=== PATIENT | female | born 1985 | race Caucasian/White ===

== ENCOUNTER 2022-11-19 17:07 | Emergency (ER) | payer SELFPAY ==
[2022-11-19 17:10] VITALS: BP 123/94; PULSE 102; RESP 18; TEMP 36.9; O2SAT 97; BMI 39.8
[2022-11-19 17:17] VITALS: BP 123/94; PULSE 60; O2SAT 96
[2022-11-19 17:21] LABS: Microscopic, Urine URINE MICROSCOPIC (MICROSCOPIC)
--- NOTE | 2022-11-19 17:21 | PC.NURSE ---
UA SENT TO LAB
[2022-11-19 17:24] LABS: Appearance,Urine CLEAR (Clear); Blood, Urine Negative (Negative); Color,Urine YELLOW (Yellow); Glucose,Urine (UA) Negative (Negative); Ketones,Urine Negative (Negative); Leukocyte Esterase,Urine TRACE (Negative); Nitrate,Urine Negative (Negative); Protein,Urine TRACE (Negative); Specific Gravity, Urine >= 1.030 (1.005-1.030)
[2022-11-19 17:33] LABS: Bilirubin,Urine 1+ (Negative)
--- NOTE | 2022-11-19 17:35 | PC.NURSE ---
LIGHT TURNED OFF PT RECEIVED WARM BLANKET STATED HER HEAD WAS STARTING TO POUND NOTIFIED RNGLORIA
[2022-11-19 17:45] LABS: Squamous Epithelial Cell,Urine Occasional #/hpf (0-5); WBC,Urine Occasional #/hpf (0-3)
--- NOTE | 2022-11-19 18:17 | CT_ITS ---
PROCEDURE INFORMATION: Exam: CT Abdomen And Pelvis With Contrast Exam date and time: 11/19/2022 6:47 PM Age: 37 years old Clinical indication: Abdominal pain; Additional info: Ruq/rlq abd pain TECHNIQUE: Imaging protocol: Computed tomography of the abdomen and pelvis with contrast. Radiation optimization: All CT scans at this facility use at least one of these dose optimization techniques: automated exposure control; mA and/or kV adjustment per patient size (includes targeted exams where dose is matched to clinical indication); or iterative reconstruction. Contrast material: ISOVUE; Contrast volume: 75 ml; Contrast route: IV; REPORTING DATA: Count of CT and Cardiac NM exams in prior 12 months: This patient has received 0 known CTs and 0 known cardiac nuclear medicine studies in the 12 months prior to the current study. COMPARISON: No relevant prior studies available. FINDINGS: Liver: Normal. No mass. Gallbladder and bile ducts: Cholecystectomy. Pancreas: Normal. No ductal dilation. Spleen: Normal. No splenomegaly. Adrenal glands: Normal. No mass. Kidneys and ureters: Normal. No hydronephrosis. Stomach and bowel: Constipation. No colitis or small bowel obstruction. Appendix: No evidence of appendicitis. Intraperitoneal space: Unremarkable. No free air. No significant fluid collection. Vasculature: Unremarkable. No abdominal aortic aneurysm. Lymph nodes: Unremarkable. No enlarged lymph nodes. Urinary bladder: Unremarkable as visualized. Reproductive: Unremarkable as visualized. Bones/joints: Unremarkable. No acute fracture. Soft tissues: Unremarkable. IMPRESSION: No acute findings.
--- NOTE | 2022-11-19 18:18 | HMH.EDGENADL ---
Discharge Plan Disposition Chief Complaint: Abdominal Pain Referrals Follow up/Referrals: Provider,Referral, [Primary Care Provider] - See instructions Activity Restrictions/Add. Instructions Additional Instructions/Restrictions: At this time is felt you are safe to be discharged home. If new or worsening symptoms please do not hesitate to return to the emergency department. Please follow-up with your family doctor within 1 week should symptoms persist. Clinical Impressions Clinical Impression: Abdominal pain Instructions Patient Instructions: DI for Acute Abdominal Pain Discharge ED Provider: Tolu Lopez General Adult HPI General Chief complaint: Abdominal Pain Stated complaint: abd pain Time Seen by Provider: 11/19/22 18:10 Mode of Arrival: Ambulatory Source of Information: Patient Limitations: No Limitations Description of Symptoms (Recalled from ER Triage Doc. by RN): Patient reports severe abdominal pain on an doff for 9 days however it became more intense approx 1 hour ago. Patient states she wants no narcotics at this time. History of Present Illness HPI narrative: Patient is a 37-year-old female with past medical history of previous polysubstance abuse, no current substance abuse, previous cholecystectomy, multiple mental health problems . Who presents emergency department for evaluation of right-sided abdominal pain. History is obtained by patient at bedside. She states that she has had right upper quadrant abdominal pain radiating around to her right flank for the last 9 days, worse with the last 3 days. Decreased p.o. intake, nonbloody nonbilious vomiting. Still having bowel movements. Patient is also recently quit smoking marijuana. No other acute complaints at this time. Related Data Allergies Allergy/AdvReac Type Severity Reaction Status Date / Time Penicillins Allergy Verified 11/19/22 17:36 sarika products Allergy Uncoded 11/19/22 17:36 [facility] Disclaimer: The information contained in this section may have been updated after the patient was seen, as this information can be updated by other users. Social History Smoking Status: Current every day smoker alcohol intake: former current occupational status: unemployed Travel in the last 8 weeks: None ROS Obtained: Yes Systems reviewed as appropriate & no additional complaints except as documented Physical Exam General General appearance: alert and in no apparent distress Head Head exam: atraumatic and normocephalic Eye Eye exam: Present PERRL, EOMI and mydriasis ENT ENT exam: Present mucous membranes moist Neck Neck exam: Present normal inspection Chest Chest inspection: Present normal inspection and symmetric chest wall rise Respiratory Respiratory exam: Present normal lung sounds bilaterally; Absent respiratory distress Cardiovascular Cardiovascular exam: Present regular rate and normal rhythm Abdominal Exam Abdominal exam: Present soft and tenderness (Right upper quadrant. Mild tenderness left upper quadrant. No tenderness bilateral lower quadrants); Absent rebound or rigidity Extremities Exam Extremities exam: Present normal inspection Neurological Exam Neurological exam: Present alert and oriented X3 Psychiatric Psychiatric exam: Present normal affect Skin Skin exam: Present warm and dry Medical Decision Making Akin Inquiry Pt receiving controlled substance: No Vital Signs: 11/19/22 17:10 11/19/22 17:17 Temperature 98.4 F Temperature Source Oral Pulse Rate 60 Pulse Rate [Radial] 102 H Respiratory Rate 18 Blood Pressure 123/94 H Blood Pressure [Right Arm] 123/94 H Blood Pressure Mean 104 Blood Pressure Mean [Right Arm] 103 Blood Pressure Source [Right Arm] Automatic Cuff Blood Pressure Position [Right Arm] Sitting 02 Sat by Pulse Oximetry 97 96 Oxygen Delivery Method Room Air Room Air Lab Data Lab Results 11/19/22 17:16: Urine Color Yellow, Urine Appearance Clear
[2022-11-19 18:24] LABS: Basophils % 0.6 % (0.1-2.0); Chloride 104 mmol/L (98-107); Eosinophils # 0.1 K/mm3 (0.0-0.4); Eosinophils % 0.8 % (0.1-12.0); Hemoglobin 10.9 g/dL (12.2-16.2); Lymphocytes # 2.5 K/mm3 (0.7-4.5); Lymphocytes % 34.9 % (10-50); Mean Corpuscular HGB Conc 31.1 g/dL (31.8-35.4); Mean Corpuscular Hemoglobin 21.3 pg (27.0-31.2); Mean Corpuscular Volume 68.5 fl (81-99); Mean Platelet Volume 7.7 fl (7.4-10.4); Monocytes # 0.4 K/mm3 (0.1-1.0); Monocytes % 5.6 % (1.7-9.3); Neutrophils # 4.2 K/mm3 (1.8-7.8); Neutrophils % 58.1 % (37.0-80.0); Platelet Count 281 K/mm3 (142-424); Potassium 3.4 mmoL/L (3.5-5.1); Red Blood Count 5.11 M/mm3 (4.20-5.40); Red Cell Distribution Width 17.6 % (11.5-17.5); Sodium 139 mmol/L (136-145); White Blood Count 7.3 K/mm3 (4.8-10.8)
[2022-11-19 18:27] LABS: Alanine Aminotransferase 31 U/L (12-78); Albumin Level 3.9 g/dl (3.5-5.0); Alkaline Phosphatase 78 U/L (38-126); Anion Gap 9.4 mEq/L (5-15); Aspartate Amino Transferase 28 U/L (14-36); Bilirubin,Total 0.5 mg/dl (0.2-1.3); Blood Urea Nitrogen 12 mg/dl (7-17); Calcium 8.9 mg/dl (8.4-10.2); Carbon Dioxide 29 mmol/L (22.0-30.0); Creatinine Clearance Estimated 181 mL/min (50-200); Estimated Glomerular Filt Rate 94 ml/min (>60); GFR (African American) 113 ML/MIN (>60); Globulin 3.8 g/dL (1.3-3.2); Glucose 101 mg/dl (74-100); Lipase 38 U/L (23-300); Total Protein,Serum 7.7 g/dl (6.3-8.2)
[2022-11-19 18:33] LABS: C-Reactive Protein 10.6 mg/L (0-4)
[2022-11-19 18:42] LABS: HCG Qualitative, Serum Negative (Negative)
--- NOTE | 2022-11-19 18:43 | PC.NURSE ---
PT IS AT CT
[2022-11-19 20:28] VITALS: BP 124/74; PULSE 58; RESP 18; TEMP 36.9; O2SAT 96
== END 2022-11-19 20:30 | disposition home or self-care (01) ==
PROVIDERS: Emergency Provider Emergency Medicine
DX: R10.11 Right upper quadrant pain (principal); F17.200 Nicotine dependence, unspecified, uncomplicated
CPT/HCPCS: 74177; 80053; 81001; 83690; 84703; 85025; 86140; 96361; 96374; 96375; 99285; J0131; J2405; Q9967

== ENCOUNTER 2023-09-02 14:55 | Emergency (ER) | payer MEDICAID, SELFPAY ==
[2023-09-02 14:56] VITALS: BP 131/76; PULSE 87; RESP 21; TEMP 37.1; O2SAT 83; BMI 40.3
--- NOTE | 2023-09-02 15:01 | ECG_ITS ---
APPROVED REPORT Exam: Resting ECG HR:77 bpm ECG Measurements Heart Rate 77 AXES ND 150 P 53 QRSd 105 QRS 64 QT 402 T 19 QTc 434 Conclusion SINUS RHYTHM Electronically signed by : DAMON WHEELER, 09/02/2023 19:42:01
--- NOTE | 2023-09-02 15:14 | XR_ITS ---
FINAL REPORT CLINICAL HISTORY: chest pressure soa, COPD FINDINGS: No acute pulmonary opacity is present. There is no evidence of effusion or pneumothorax. Mediastinum is unremarkable. Heart size is normal. IMPRESSION: No acute abnormality. Reviewed, Interpreted and Dictated by Payton Garvey MD Transcribed by Tia Campos Authenticated and [facility]
[2023-09-02 15:25] LABS: Basophils % 0.5 % (0.1-2.0); Chloride 108 mmol/L (98-107); Eosinophils # 0.1 K/mm3 (0.0-0.4); Eosinophils % 1.4 % (0.1-12.0); Hematocrit 29.3 % (37.0-47.0); Hemoglobin 9.3 g/dL (12.2-16.2); Lymphocytes # 2.3 K/mm3 (0.7-4.5); Lymphocytes % 42.3 % (10-50); Mean Corpuscular HGB Conc 31.6 g/dL (31.8-35.4); Mean Corpuscular Hemoglobin 22.2 pg (27.0-31.2); Mean Corpuscular Volume 70.1 fl (81-99); Mean Platelet Volume 7.9 fl (7.4-10.4); Monocytes # 0.3 K/mm3 (0.1-1.0); Monocytes % 5.9 % (1.7-9.3); Neutrophils # 2.7 K/mm3 (1.8-7.8); Neutrophils % 49.8 % (37.0-80.0); Platelet Count 300 K/mm3 (142-424); Potassium 3.7 mmoL/L (3.5-5.1); Red Blood Count 4.18 M/mm3 (4.20-5.40); Red Cell Distribution Width 18.5 % (11.5-17.5); Sodium 141 mmol/L (136-145); White Blood Count 5.5 K/mm3 (4.8-10.8)
[2023-09-02 15:27] LABS: Blood Urea Nitrogen 12 mg/dl (7-17); Creatinine Clearance Estimated 214 mL/min (50-200); Estimated Glomerular Filt Rate 112 ml/min (>60); GFR (African American) 135 ML/MIN (>60)
[2023-09-02 15:28] LABS: Alanine Aminotransferase 34 U/L (12-78); Albumin Level 3.5 g/dl (3.5-5.0); Alkaline Phosphatase 64 U/L (38-126); Anion Gap 8.7 mEq/L (5-15); Aspartate Amino Transferase 23 U/L (14-36); Bilirubin,Total 0.4 mg/dl (0.2-1.3); Calcium 8.8 mg/dl (8.4-10.2); Carbon Dioxide 28 mmol/L (22.0-30.0); Globulin 3.4 g/dL (1.3-3.2); Glucose 84 mg/dl (74-100); Total Protein,Serum 6.9 g/dl (6.3-8.2)
[2023-09-02 15:30] VITALS: BP 87/48; PULSE 74; O2SAT 97
--- NOTE | 2023-09-02 15:33 | HMH.EDCP ---
Discharge Plan Disposition Patient Disposition: Home, Self-Care Prescriptions Prescriptions: New prednisone 20 mg tablet 40 mg PO DAILY 5 Days Qty: 10 0RF ondansetron 4 mg tablet,disintegrating 4 mg PO Q6H PRN (Reason: nausea and vomiting) Qty: 10 0RF Referrals Follow up/Referrals: Provider,Referral, MD [Primary Care Provider] - See instructions Activity Restrictions/Add. Instructions Additional Instructions/Restrictions: Call your family doctor to establish care for this visit to the emergency department and schedule follow-up within 48 hours to ensure improvement. If you have any worsening of your condition or any other concerning signs or symptoms, return to the emergency department or your primary care doctor for further evaluation. Clinical Impressions Clinical Impression: Acute exacerbation of chronic obstructive pulmonary disease Discharge ED Provider: Teofilo Jacobo HPI General Chief Complaint: Chest Pain Stated Complaint: Chest Pain Time Seen by Provider: 09/02/23 15:04 Mode of Arrival: Family Vehicle Source of Information: Patient Limitations: No Limitations Description of Symptoms (Recalled from ER Triage Doc. by RN): Pt c/o midsternal chest pain that has been present since yesterday. States while she was driving this morning, I don't even rember driving home I just felt really out of sorts . States she has also had nausea with vomiting bile last 2 days and has an awful metallic taste in my mouth . She denies any fever, chills, body aches, or abd pain. She does reports a hx of drug use and take Methadone daily. History of Present Illness HPI narrative: Please note that above description of symptoms, in this electronic medical record under categorization of recalled from ER triage doctor by RN are reflective of an initial nursing assessment, however, is not reflective of my full history and physical exam that was personally taken and clarified. Consequentially, this preceding description of symptoms, which may include the patient's categorized chief complaint in the EMR, do not reflect my personal clinical impression, and the ultimate description of history of present illness and patient stated complaints should be deferred to this section of the note. Unless stated otherwise or congruent with this section of the note, additional signs, symptoms, or incongruence should be interpreted as inaccurate with my clinical impression. Related Data Previous Rx's Medication Instructions Recorded ondansetron 4 mg disintegrating 4 mg PO Q6H PRN nausea and 09/02/23 tablet vomiting #10 tabs prednisone 20 mg tablet 40 mg (2 x 20 mg) PO DAILY 5 days 09/02/23 #10 tabs Allergies Allergy/AdvReac Type Severity Reaction Status Date / Time lidocaine Allergy Unknown Verified 12/20/22 09:58 allergy reaction Penicillins Allergy Unknown Verified 12/20/22 09:58 allergy reaction [facility] Disclaimer: The information contained in this section may have been updated after the patient was seen, as this information can be updated by other users. Social History (Updated 11/19/22 @ 20:20 by Tolu Lopez MD) Smoking Status: Current every day smoker alcohol intake: former current occupational status: unemployed Travel in the last 8 weeks: None ROS Obtained: Yes All systems reviewed & no additional complaints except as documented Physical Exam General General appearance: alert Neck Neck exam: Present trachea midline Chest Chest inspection: Present normal inspection and symmetric chest wall rise Respiratory Respiratory exam: Present normal lung sounds bilaterally; Absent respiratory distress, wheezes, stridor, accessory muscle use or prolonged expiratory phase Cardiovascular Cardiovascular exam: Present regular rate and normal rhythm Extremities Exam Extremities exam: Absent edema Neurological Exam Neurological exam: Present alert, oriented X3 and CN II-XII intact Skin Skin exam: Present warm and dry; Absent cyanosis, diaphoresis or pallor HEART Score HEART Score HEART Score assessment performed?: Yes HEART Score: 0 Critical Care Critical Care Time Critical Care Time: No Medical Decision Making Medical Records Medical records reviewed: Yes I reviewed the patient's medical records. Akin Inquiry Pt receiving controlled substance: No Akin was queried for this patient: No Vital Signs Vital Signs: 09/02/23 14:56 09/02/23 15:30 Temperature 98.7 F Temperature Source Oral Pulse Rate 74 Pulse Rate [Right] 87 Respiratory Rate 21 Blood Pressure 87/48 L Blood Pressure [Right Arm] 131/76 Blood Pressure Mean [Right Arm] 94 Blood Pressure Source [Right Arm] Automatic Cuff 02 Sat by Pulse Oximetry 83 L 97 Oxygen Delivery Method Room Air Room Air Lab Data Labs: Lab Results 09/02/23 15:07: WBC 5.5, RBC 4.18 L, Hgb 9.3 L, Hct 29.3 L, MCV 70.1 L, MCH 22.2 L, MCHC 31.6 L, RDW 18.5 H, Plt Count 300, MPV 7.9, Neut % (Auto) 49.8, Lymph % (Auto) 42.3, Scurry % (Auto) 5.9, Eos % (Auto) 1.4, Baso % (Auto) 0.5, Neut # (Auto) 2.7, Lymph # (Auto) 2.3, Scurry # (Auto) 0.3, Eos # (Auto) 0.1, Baso # (Auto) 0.0, Sodium 141, Potassium 3.7, Chloride 108 H, Carbon Dioxide 28, Anion Gap 8.7, BUN 12, Creatinine 0.60, Estimated Creat Clear 214, Estimated GFR 112, Est GFR ( Amer) 135, Glucose 84, Calcium 8.8, Total Bilirubin 0.4, AST 23, ALT 34, Alkaline Phosphatase 64, Troponin I < 0.01, Total Protein 6.9, Albumin 3.5, Globulin 3.4 H, Albumin/Globulin Ratio 1.0 L, TSH 2.62, Thyroxine (T4) 10.9 09/02/23 15:07 09/02/23 15:07 Response Orders (Tests/Meds): ED MEDICATIONS Discontinued Medications Generic Name Dose Route Start Last Admin Trade Name Freq PRN Reason Stop Dose Admin Albuterol/Ipratropium 6 ml 09/02/23 15:14 09/02/23 15:43 Ipratropium/Albuterol 3 Ml Neb IH 09/02/23 15:15 6 ml ONCE ONE Administration Dexamethasone Sodium Phosphate 10 mg 09/02/23 15:14 09/02/23 15:44 Dexamethasone 4mg/Ml 1ml Vial IV 09/02/23 15:15 10 mg ONCE ONE Administration ORDERS Category Date Time Status CXR --portable [XR chest portable] Stat Exams 09/02/23 15:14 Completed CBC w/Auto Diff [Complete Blood Count Auto Diff] Stat Lab 09/02/23 15:07 Completed CMP [Comprehensive Metabolic Panel] Stat Lab 09/02/23 15:07 Completed T4 (Thyroxine) Stat Lab 09/02/23 15:07 Completed TSH [Thyroid Stimulating Hormone] Stat Lab 09/02/23 15:07 Completed Trop I [Troponin I] Stat Lab 09/02/23 15:07 Completed Troponin I Q3H Lab 09/02/23 18:15 Ordered Troponin I Q3H Lab 09/02/23 21:15 Ordered MDM Narrative Medical Decision Narrative: The male history of 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 Patient states that a couple days prior to this visit, she used marijuana that she got from unknown person and she smoked it in order to relax. Since that time, she states that she has felt generally unwell. States that she has had chest pressure that does not radiate, nausea, vomiting producing nonbloody/nonbilious vomit, general sense of unwellness. No neurologic deficits. Has not been around anyone has been sick, having fevers or chills, leg swelling, or any other concerns. Never had anything like this before. Nothing in particular makes it better or worse. History was obtained via conversation with patient. On arrival, patient hemodynamically stable, alert, oriented x4, appropriate, GCS 15, moving all extremities spontaneously, pupils equal and reactive to light. Full physical exam performed and significant for very well-appearing woman in no acute distress. Cardiac exam insignificant overall. No murmurs, gallops, rubs. No evidence of JVD. Patient has equal and symmetric pulses in upper and lower extremities. No secondary sequela of endocarditis. No lower extremity swelling. Lungs are clear to auscultation bilaterally anterior and posteriorly, patient neurologically intact. She does have poor dentition, but no range of motion difficulties of the neck, voice changes. Differential includes COPD exacerbation, metabolic, endocrinologic, dehydration, substance abuse, ACS, ND, pneumonia, among others. Patient was given DuoNebs and Decadron for symptomatic management and correction of underlying abnormalities. Workup independently interpreted and significant for nonactionable hematologic workup. Troponin negative. Chest x-ray without acute cardiopulmonary space disease. See radiology read for full review of final results. Independent interpretation of EKG shows sinus rhythm 77 beats a minute no ST or T wave changes concerning for acute ischemia. WI, QRS, QT intervals within normal limits. [place] normal. Patient placed on continuous cardiac monitoring and continuous pulse ox with initial blood pressure 131/76, heart rate 87, saturation 83% on room air. Heart score 0. On reevaluation, patient sleeping comfortably, oxygen saturation 98%, normotensive, nontachycardic, states she feels little bit better, still nauseated. Zofran and prednisone sent to pharmacy. Given patient presentation, workup, history, this most likely represents mild COPD exacerbation. Because patient at baseline without signs or symptoms of clinical decompensation, deemed appropriate for discharge. Results were relayed to patient who voiced understanding and were agreeable to outpatient management and follow up. I discussed my clinical impression with patient and answered all questions. At this time, the evidence for any other entities in the differential is insufficient to warrant any further testing or ED observation. This was explained as well. Advisory was given that persistent or worsening symptoms require further evaluation. I confirmed the understanding of this discussion.
--- NOTE | 2023-09-02 15:36 | PC.NURSE ---
XR AT BEDSIDE
[2023-09-02 15:42] LABS: Troponin I < 0.01 ng/ml (0.00-0.034)
[2023-09-02] MEDS: IPRATROPIUM/ALBUTEROL 3 ML NEB 6 ML IH (15:43)
[2023-09-02] MEDS: DEXAMETHASONE 4MG/ML 1ML VIAL 10 MG IV (15:44)
[2023-09-02 15:46] LABS: T4 (Thyroxine) 10.9 ug/dl (5.53-11.0)
[2023-09-02 15:59] LABS: Thyroid Stimulating Hormone 2.62 uIU/mL (0.465-4.68)
[2023-09-02 16:56] VITALS: BP 136/72; PULSE 74; RESP 20; TEMP 37; O2SAT 97
== END 2023-09-02 16:57 | disposition home or self-care (01) ==
PROVIDERS: Emergency Provider Emergency Medicine
DX: J44.1 Chronic obstructive pulmonary disease with (acute) exacerbation (principal); R07.9 Chest pain, unspecified; R11.2 Nausea with vomiting, unspecified; I10 Essential (primary) hypertension; F17.210 Nicotine dependence, cigarettes, uncomplicated
CPT/HCPCS: 71045; 80053; 84436; 84443; 84484; 85025; 93005; 96374; 99284

== ENCOUNTER 2023-11-16 20:34 | Outpatient (CLI) | payer MEDICAID, SELFPAY ==
--- NOTE | 2023-11-16 20:47 | ECG_ITS ---
APPROVED REPORT Exam: Resting ECG HR:80 bpm ECG Measurements Heart Rate 80 AXES AR 146 P 54 QRSd 100 QRS 62 QT 369 T 14 QTc 404 Conclusion SINUS RHYTHM NONSPECIFIC T-WAVE ABNORMALITY BORDERLINE ECG UNCONFIRMED REPORT Electronically signed by : Tony Leonard MD 11/19/2023 10:54:53
== END 2023-11-16 23:59 | disposition home or self-care (01) ==
LOC: RT 20:38
DX: R94.31 Abnormal electrocardiogram [ECG] [EKG] (principal)
CPT/HCPCS: 93005

== ENCOUNTER 2024-07-27 07:28 | Emergency (ER) | payer MEDICAID, SELFPAY ==
[2024-07-27 07:33] VITALS: BP 118/66; PULSE 88; O2SAT 98
--- NOTE | 2024-07-27 07:35 | HMH.EDCP ---
Discharge Plan Disposition Patient Disposition: Home, Self-Care Prescriptions Prescriptions: New prednisone 20 mg tablet 40 mg PO DAILY 5 Days Qty: 10 0RF doxycycline monohydrate 100 mg capsule 100 mg PO BID 5 Days Qty: 10 0RF albuterol-budesonide 90-80 mcg/actuation HFA aerosol inhaler 2 inh inhalation DAILY PRN (Reason: shortness of breath) Qty: 10.7 0RF No Action methadone 5 mg Tablet 145 mg PO DAILY Referrals Follow up/Referrals: Dave Fierro MD [Staff Physician] - See instructions Provider,Referral, [Primary Care Provider] - See instructions Clinical Impressions Clinical Impression: Acute exacerbation of chronic obstructive airways disease Stand Alone Forms Stand Alone Forms: Work/School Release Instructions Patient Instructions: DI for Chronic Obstructive Pulmonary Disease Print Language Print Language: Turkish Discharge ED Provider: Ynes Khan General Chief Complaint: Shortness of Breath/Dyspnea Stated Complaint: soa, diff breathing, asthma Time Seen by Provider: 07/27/24 07:34 History of Present Illness HPI narrative: Patient is a 38-year-old female with past medical history significant for COPD and asthma Daily smoker pack per day presents to the emergency department with shortness of breath. Patient has been short of breath over the last 2 days. Unable to cough because of pain no fevers chills nausea vomiting diarrhea or abdominal pain. Associated chest pain worse when taking deep breath. Previously was on 4 different inhalers however recently moved to [place] and has not had her inhalers for over a year. Does not have a primary care provider. Recent weight gain. Related Data Home Medications ?Medication ?Instructions ?Recorded ?Confirmed methadone 5 mg tablet 145 mg PO DAILY 07/27/24 07/27/24 Previous Rx's ?Medication ?Instructions ?Recorded albuterol 90 mcg-budesonide 80 2 inh inhalation DAILY PRN 07/27/24 mcg/actuation HFA aerosol inhaler shortness of breath #10.7 grams doxycycline monohydrate 100 mg 100 mg PO BID 5 days #10 caps 07/27/24 capsule prednisone 20 mg tablet 40 mg (2 x 20 mg) PO DAILY 5 days 07/27/24 #10 tabs Allergies Allergy/AdvReac Type Severity Reaction Status Date / Time benzocaine (From Cetacaine) Allergy Severe Anaphylaxis Verified 07/27/24 08:20 butamben (From Cetacaine) Allergy Severe Anaphylaxis Verified 07/27/24 08:20 lidocaine Allergy Severe Anaphylaxis Verified 07/27/24 08:20 Penicillins Allergy Severe Anaphylaxis Verified 07/27/24 08:20 shellfish derived Allergy Severe Anaphylaxis Verified 07/27/24 08:20 tetracaine (From Cetacaine) Allergy Severe Anaphylaxis Verified 07/27/24 08:20 [facility] Disclaimer: The information contained in this section may have been updated after the patient was seen, as this information can be updated by other users. Medical History (Updated 07/27/24 @ 09:06 by Ynes Khan MD) Hx of drug abuse COPD (chronic obstructive pulmonary disease) Asthma Surgical History (Updated 07/27/24 @ 08:19 by Therese Whiting RN) Hx of cholecystectomy Hx of oral surgery Hx of dilation and curettage Hx of section Hx of tubal ligation Social History (Updated 11/19/22 @ 20:20 by Tolu Lopez MD) Smoking Status: Current every day smoker alcohol intake: former current occupational status: unemployed Travel in the last 8 weeks: None Have you lived/traveled outside US in past 30 days?: No Contact w/someone who lives/traveled outside US past 30 days?: No Exposure to someone with infectious disease in past 14 days?: No Do you have a fever (greater than 100.4 F or 38 C)?: No Have you tested positive for COVID-19: No Exposed to someone with COVID-19 in past 14 days?: No Do you have a sore throat?: No Do you have a cough?: No Do you have any weakness?: No Do you have any diarrhea?: No Are you experiencing any unusual bleeding?: No Do you have any muscle aches/pain?: No Do you have any abdominal pain?: No Are you experiencing loss of taste or smell?: No ROS Obtained: Yes All systems reviewed & no additional complaints except as documented Physical Exam General General appearance: alert and in no apparent distress Eye Eye exam: Present normal appearance and EOMI ENT ENT exam: Present normal exam and normal oropharynx Neck Neck exam: Present normal inspection and full ROM Chest Chest inspection: Present normal inspection and symmetric chest wall rise Respiratory Respiratory exam: Present other (minimal air movement bilaterally ) Cardiovascular Cardiovascular exam: Present regular rate and normal rhythm Abdominal Exam Abdominal exam: Present soft; Absent distention or tenderness Neurological Exam Neurological exam: Present alert and oriented X3 Skin Skin exam: Present warm and dry HEART Score HEART Score HEART Score assessment performed?: Yes History (anamnesis): Slightly suspicious ECG: Normal Age: <45 years Risk factors: 1-2 risk factors Troponin: </= normal limit HEART Score: 1 Critical Care Critical Care Time Critical Care Time: No Medical Decision Making Akin Inquiry Pt receiving controlled substance: No Vital Signs Vital Signs: 07/27/24 07:33 07/27/24 07:39 07/27/24 08:09 Temperature 97.7 F Temperature Source Oral Pulse Rate 88 Pulse Rate [Right] 88 Respiratory Rate 20 15 Blood Pressure 118/66 100/68 L Blood Pressure [Left Arm] 118/66 Blood Pressure Mean [Left Arm] 83 Blood Pressure Source Blood Pressure Source [Left Arm] Automatic Cuff 02 Sat by Pulse Oximetry 98 98 Oxygen Delivery Method Room Air 07/27/24 08:30 07/27/24 09:00 07/27/24 09:59 Temperature 98.2 F Temperature Source Oral Pulse Rate 83 88 88 Pulse Rate [Right] Respiratory Rate 13 16 20 Blood Pressure 97/54 L 106/51 L 108/57 L Blood Pressure [Left Arm] Blood Pressure Mean [Left Arm] Blood Pressure Source Automatic Cuff Blood Pressure Source [Left Arm] 02 Sat by Pulse Oximetry 94 L 99 Oxygen Delivery Method Room Air Room Air Room Air Lab Data Labs: Lab Results 07/27/24 08:02: WBC 7.1, RBC 4.68, Hgb 10.2 L, Hct 33.7 L, MCV 72.0 L, MCH 21.8 L, MCHC 30.3 L, RDW 17.3, Plt Count 278, MPV 9.8, Neut % (Auto) 55.2, Lymph % (Auto) 37.3, [place] % (Auto) 5.7, Eos % (Auto) 1.1, Baso % (Auto) 0.4, Neut # (Auto) 3.9, Lymph # (Auto) 2.7, [place] # (Auto) 0.4, Eos # (Auto) 0.1, Baso # (Auto) 0.0, Sodium 139, Potassium 3.7, Chloride 102, Carbon Dioxide 28, Anion Gap 12.7, BUN 11, Creatinine 0.60, Estimated Creat Clear 100, Estimated GFR 111, Est GFR ( Amer) 135, Glucose 117 H, Calcium 9.0, Total Bilirubin 0.4, AST 24, ALT 33, Alkaline Phosphatase 67, Troponin I < 0.01, Total Protein 7.5, Albumin 4.2, Globulin 3.3 H, Albumin/Globulin Ratio 1.3, Procalcitonin 0.045, Serum HCG, Qual Negative, HCV Ab KAITLYN w/Rflx PCR Qn Reactive, HIV Ag/Ab Combo Qual Negative 07/27/24 08:02 07/27/24 08:02 Response Orders (Tests/Meds): ED MEDICATIONS Discontinued Medications Generic Name Dose Route Start Last Admin Trade Name Freq PRN Reason Stop Dose Admin Albuterol/Ipratropium 9 ml 07/27/24 07:40 07/27/24 08:01 Ipratropium/Albuterol 3 Ml Neb IH 07/27/24 07:41 9 ml ONCE ONE Administration Magnesium Sulfate 2 gm in 50 mls @ 50 mls/hr 07/27/24 07:40 07/27/24 08:04 Magnesium Sulfate 2gm/50ml Premix IV 07/27/24 08:39 50 mls/hr ONCE ONE Administration Lactated Ringer's 1,000 mls @ 999 mls/hr 07/27/24 07:48 07/27/24 08:05 Lactated Ringer's 1000 Ml Bag IV 07/27/24 08:48 999 mls/hr .Q1H1M ONE Administration Methylprednisolone Sodium Succinate 125 mg 07/27/24 07:40 07/27/24 08:05 Methylprednisolone Sod Succ 125mg Vial IV 07/27/24 07:41 125 mg ONCE ONE Administration ORDERS Category Date Time Status XR chest 2V Stat Exams 07/27/24 07:40 Completed Complete Blood Count Auto Diff Stat Lab 07/27/24 08:02 Completed Comprehensive Metabolic Panel Stat Lab 07/27/24 08:02 Completed HCG Qualitative, Serum Stat Lab 07/27/24 08:02 Completed HCV RNA PCR, Quant Stat Lab 07/27/24 08:02 Received HIV Combo Stat Lab 07/27/24 08:02 Completed Hepatitis C Ab Qual. W/ RFX Stat Lab 07/27/24 08:02 Completed Procalcitonin Stat Lab 07/27/24 08:02 Completed Troponin I Q3H Lab 07/27/24 10:45 Ordered Troponin I Q3H Lab 07/27/24 13:45 Ordered Troponin I Stat Lab 07/27/24 08:02 Completed ECG Request Stat Y 07/27/24 07:40 Ordered MDM Narrative Medical Decision Narrative: In summary, this 38-year-old female presents to the emergency department today with shortness of air. On initial evaluation patient is saturating appropriately on room air afebrile no acute distress hemodynamically stable. Differential diagnosis includes but is not limited to COPD or asthma exacerbation, pneumonia, pneumothorax, ACS, PE. Based on these concerns, I ordered CBC CMP qualitative beta hCG chest x-ray troponin EKG procalcitonin. PERC negative. ECG personally interpreted demonstrates normal sinus rhythm no ST elevation T wave inversions or ST depressions concerning for ischemia normal axis. Patient received 3 DuoNebs, magnesium, methylprednisolone, lactated Ringer's for treatment. Labs personally reviewed demonstrate stable anemia, negative test, normal troponin. XR personally interpreted demonstrates no focal consolidation. On reassessment patient has improvement in lung sounds and symptoms, saturating appropriately on RA. Symptoms and workup most consistent with COPD exacerbation. Admission considered and not needed at this time as patient saturating appropriately on room air with improvement of symptoms. Of note, social determinants of health include lack of access to primary care. Patient was given referral to local primary care. Prescribed albuterol-budesonide, doxycycline and prednisone for COPD exacerbation
[2024-07-27 07:39] VITALS: BP 118/66; PULSE 88; RESP 20; TEMP 36.5; O2SAT 98; BMI 43.9
--- NOTE | 2024-07-27 07:40 | XR_ITS ---
FINAL REPORT TECHNIQUE: Chest PA & Lateral CLINICAL HISTORY: Shortness of breath and chest pain COMPARISON: 09/02/2023 FINDINGS: 2 views of the chest were performed. The heart size is normal. The mediastinum is within normal limits. There is no acute cardiopulmonary process. There are no pleural effusions. There is no pneumothorax. The bony thorax appears intact. IMPRESSION: No acute cardiopulmonary process. Reviewed, Interpreted and Dictated by Jaden Rodriguez MD Transcribed by Jazmine Johansen Authenticated and [facility]
[2024-07-27] MEDS: IPRATROPIUM/ALBUTEROL 3 ML NEB 9 ML IH (08:01)
[2024-07-27] MEDS: MAGNESIUM SULFATE IN WATER 2 GM/50 ML PIGGYBACK IV (08:04)
[2024-07-27] MEDS: LACTATED RINGERS 1000ML 1,000 ML 999 ML IV (08:05)
[2024-07-27] MEDS: METHYLPREDNISOLONE SOD SUCC 125MG VIAL 125 MG IV (08:05)
--- NOTE | 2024-07-27 08:06 | ECG_ITS ---
APPROVED REPORT Exam: Resting ECG HR:73 bpm ECG Measurements Heart Rate 73 AXES GA 164 P 63 QRSd 106 QRS 76 QT 392 T 56 QTc 419 Conclusion SINUS RHYTHM NORMAL ECG Electronically signed by : MARIUM HOLLIS, 07/29/2024 00:26:05
[2024-07-27 08:09] VITALS: BP 100/68; RESP 15
[2024-07-27 08:10] LABS: Basophils % 0.4 % (0.1-2.0); Eosinophils # 0.1 K/mm3 (0.0-0.4); Eosinophils % 1.1 % (0.1-12.0); Hematocrit 33.7 % (37.0-47.0); Hemoglobin 10.2 g/dL (12.2-16.2); Lymphocytes # 2.7 K/mm3 (0.7-4.5); Lymphocytes % 37.3 % (10-50); Mean Corpuscular HGB Conc 30.3 g/dL (31.8-35.4); Mean Corpuscular Hemoglobin 21.8 pg (27.0-31.2); Mean Platelet Volume 9.8 fl (7.4-10.4); Monocytes # 0.4 K/mm3 (0.1-1.0); Monocytes % 5.7 % (1.7-9.3); Neutrophils # 3.9 K/mm3 (1.8-7.8); Neutrophils % 55.2 % (37.0-80.0); Platelet Count 278 K/mm3 (142-424); Red Blood Count 4.68 M/mm3 (4.20-5.40); Red Cell Distribution Width 17.3 % (11.5-17.5); White Blood Count 7.1 K/mm3 (4.8-10.8)
[2024-07-27 08:22] LABS: Albumin Level 4.2 g/dl (3.5-5.0); Chloride 102 mmol/L (98-107); Potassium 3.7 mmoL/L (3.5-5.1); Sodium 139 mmol/L (136-145)
[2024-07-27 08:24] LABS: Blood Urea Nitrogen 11 mg/dl (7-17)
[2024-07-27 08:25] LABS: Alanine Aminotransferase 33 U/L (12-78); Albumin/Globulin Ratio 1.3 (1.1-1.8); Alkaline Phosphatase 67 U/L (38-126); Anion Gap 12.7 mEq/L (5-15); Aspartate Amino Transferase 24 U/L (14-36); Bilirubin,Total 0.4 mg/dl (0.2-1.3); Carbon Dioxide 28 mmol/L (22.0-30.0); Creatinine Clearance Estimated 100 mL/min (50-200); Estimated Glomerular Filt Rate 111 ml/min (>60); GFR (African American) 135 ML/MIN (>60); Globulin 3.3 g/dL (1.3-3.2); Glucose 117 mg/dl (74-100); Total Protein,Serum 7.5 g/dl (6.3-8.2)
[2024-07-27 08:27] LABS: HCG Qualitative, Serum Negative (Negative)
[2024-07-27 08:30] VITALS: BP 97/54; PULSE 83; RESP 13; O2SAT 94
--- NOTE | 2024-07-27 08:31 | PC.NURSE ---
pt to xray via wheelchair
[2024-07-27 08:58] LABS: Troponin I < 0.01 ng/ml (0.00-0.034)
[2024-07-27 09:00] VITALS: BP 106/51; PULSE 88; RESP 16; O2SAT 99
[2024-07-27 09:11] LABS: HIV Combo NEGATIVE (Negative)
[2024-07-27 09:20] LABS: Hepatitis C Ab Qual. W/ RFX REACTIVE (Negative)
[2024-07-27 09:24] LABS: Procalcitonin 0.045 ng/mL (0.0-2.0)
--- NOTE | 2024-07-27 09:52 | PC.NURSE ---
updated pt on poc and gave a blanket for comfort
[2024-07-27 09:59] VITALS: BP 108/57; PULSE 88; RESP 20; TEMP 36.8; O2SAT 95
== END 2024-07-27 10:09 | disposition home or self-care (01) ==
PROVIDERS: Emergency Provider Student in an Organized Health Care Education/Training Program
DX: J44.1 Chronic obstructive pulmonary disease with (acute) exacerbation (principal); R06.02 Shortness of breath; R07.1 Chest pain on breathing; J44.9 Chronic obstructive pulmonary disease, unspecified; J45.909 Unspecified asthma, uncomplicated; Z72.0 Tobacco use
CPT/HCPCS: 71046; 80053; 84145; 84484; 84703; 85025; 86803; 87389; 87522; 93005; 96365; 96367; 96374; 99284; J2919; J3475; J7120; J7620

== ENCOUNTER 2024-09-21 05:49 | Emergency (ER) | payer MEDICAID, SELFPAY ==
[2024-09-21] VITALS (9 sets, daily range): BP systolic 90–118; BP diastolic 48–66; PULSE 58–71; RESP 11–16; TEMP 36.6–36.7; O2SAT 94–97; BMI 50.5
--- NOTE | 2024-09-21 05:56 | CT_ITS ---
FINAL REPORT TECHNIQUE: Thin section axial CT with contrast with multiplanar reconstruction This study was performed with techniques to keep radiation doses as low as reasonably achievable, (ALARA). Individualized dose reduction techniques using automated exposure control or adjustment of mA and/or kV according to the patient''s size were employed. CLINICAL HISTORY: Chest pain, shortness of breath, LE swelling COMPARISON: None FINDINGS: Pulmonary vessels enhance in normal fashion without evidence of embolism. Thoracic aorta shows no dissection or aneurysm. No pulmonary mass or infiltrate is present. There is no significant pleural effusion. There is no significant pericardial effusion. No mediastinal or hilar adenopathy is present. Limited images of the upper abdomen show no acute findings. The patient is status postcholecystectomy. IMPRESSION: No evidence of pulmonary embolism Reviewed, Interpreted and Dictated by Payton Garvey MD Transcribed by Jazmine Johansen Authenticated and [facility]
--- NOTE | 2024-09-21 06:00 | ECG_ITS ---
APPROVED REPORT Exam: Resting ECG HR:63 bpm ECG Measurements Heart Rate 63 AXES SD 152 P 51 QRSd 105 QRS 66 QT 409 T 32 QTc 417 Conclusion SINUS RHYTHM NORMAL ECG UNCONFIRMED REPORT Electronically signed by : HELENA MOSQUEDA, 09/23/2024 06:55:19
--- NOTE | 2024-09-21 06:01 | ED_ITS ---
Discharge Plan Disposition Patient Disposition: Home, Self-Care Prescriptions Prescriptions: No Action methadone 5 mg Tablet 145 mg PO DAILY prednisone 20 mg tablet 40 mg PO DAILY 5 Days Qty: 10 0RF doxycycline monohydrate 100 mg capsule 100 mg PO BID 5 Days Qty: 10 0RF albuterol-budesonide 90-80 mcg/actuation HFA aerosol inhaler 2 inh inhalation DAILY PRN (Reason: shortness of breath) Qty: 10.7 0RF Referrals Follow up/Referrals: Provider,Referral, [Primary Care Provider] - See instructions Activity Restrictions/Add. Instructions Additional Instructions/Restrictions: Follow-up with your primary care physician. If you develop any new or worsening symptoms, or if you become concerned for your health for any reason, return to the emergency department for evaluation. Clinical Impressions Clinical Impression: Chest pain, Acute dyspnea Print Language Print Language: Portuguese Discharge ED Provider: Saurabh High General Adult HPI <Mehlu Osuna MD - Last Filed: 09/21/24 07:12> General Chief complaint: Shortness of Breath/Dyspnea Stated complaint: trouble breathing chest tightness copd history Time Seen by Provider: 09/21/24 05:50 History of Present Illness HPI narrative: 38-year-old history of COPD presents for chest tightness shortness of breath and anxiety. Reports it started around 4 AM. She was doing nothing prior to this happening. She continues to smoke. She denies any significant abdominal pain or nausea or vomiting. She reports no recent travels, does report right leg swelling over the last week. Related Data Home Medications ?Medication ?Instructions ?Recorded ?Confirmed methadone 5 mg tablet 145 mg PO DAILY 07/27/24 07/27/24 Previous Rx's ?Medication ?Instructions ?Recorded albuterol 90 mcg-budesonide 80 2 inh inhalation DAILY PRN 07/27/24 mcg/actuation HFA aerosol inhaler shortness of breath #10.7 grams doxycycline monohydrate 100 mg 100 mg PO BID 5 days #10 caps 07/27/24 capsule prednisone 20 mg tablet 40 mg (2 x 20 mg) PO DAILY 5 days 07/27/24 #10 tabs Allergies Allergy/AdvReac Type Severity Reaction Status Date / Time benzocaine (From Cetacaine) Allergy Severe Anaphylaxis Verified 07/27/24 08:20 butamben (From Cetacaine) Allergy Severe Anaphylaxis Verified 07/27/24 08:20 lidocaine Allergy Severe Anaphylaxis Verified 07/27/24 08:20 Penicillins Allergy Severe Anaphylaxis Verified 07/27/24 08:20 shellfish derived Allergy Severe Anaphylaxis Verified 07/27/24 08:20 tetracaine (From Cetacaine) Allergy Severe Anaphylaxis Verified 07/27/24 08:20 PFSH <Mehul Osuna MD - Last Filed: 09/21/24 07:12> [facility] Disclaimer: The information contained in this section may have been updated after the patient was seen, as this information can be updated by other users. Medical History (Updated 09/21/24 @ 07:00 by Mehul Osuna MD) Hx of drug abuse COPD (chronic obstructive pulmonary disease) Asthma Surgical History (Updated 07/27/24 @ 08:19 by Therese Whiting RN) Hx of cholecystectomy Hx of oral surgery Hx of dilation and curettage Hx of section Hx of tubal ligation Social History (Updated 11/19/22 @ 20:20 by Tolu Lopez MD) Smoking Status: Current every day smoker alcohol intake: former current occupational status: unemployed Travel in the last 8 weeks?: None <Mehul Osuna MD - Last Filed: 09/21/24 07:12> ROS Obtained: Yes All systems reviewed & no additional complaints except as documented Physical Exam <Mehul Osuna MD - Last Filed: 09/21/24 07:12> General General appearance: alert and anxious Head Head exam: atraumatic and normocephalic Eye Eye exam: Present normal appearance, PERRL and EOMI ENT ENT exam: Present normal oropharynx and normal external ear exam Neck Neck exam: Present normal inspection and full ROM Chest Chest inspection: Present normal inspection and symmetric chest wall rise; Absent tenderness Respiratory Respiratory exam: Present normal lung sounds bilaterally; Absent respiratory distress Cardiovascular Cardiovascular exam: Present regular rate and normal rhythm Abdominal Exam Abdominal exam: Present soft; Absent distention, tenderness or guarding Extremities Exam Extremities exam: Present normal inspection; Absent edema or joint swelling Back Exam Back exam: Present normal inspection; Absent tenderness Neurological Exam Neurological exam: Present alert and oriented X3; Absent motor sensory deficit Psychiatric Psychiatric exam: Present normal affect and normal mood Skin Skin exam: Present warm, dry and normal color Lymphatic Lymphatic Findings: no adenopathy Medical Decision Making <Mehul Osuna MD - Last Filed: 09/21/24 07:12> Medical Records Medical records reviewed: Yes I reviewed the patient's medical records. Screening: Per USPSTF and CDC recommendations, given the prevalence of disease in our region, it is our hospital?s policy to screen for HIV and viral Hepatitis for all patients aged 18 and over and those with ongoing risk factors. Akin Inquiry Pt receiving controlled substance: No Akin was queried for this patient: No Vital Signs: 09/21/24 05:58 09/21/24 06:30 09/21/24 07:00 Temperature 98 F Temperature Source Oral Pulse Rate 59 L 59 L Pulse Rate [Right Radial] 71 Respiratory Rate 16 Blood Pressure 98/66 L 104/58 L Blood Pressure [Right Arm] 118/65 Blood Pressure Mean Blood Pressure Mean [Right Arm] 82 Blood Pressure Source [Right Arm] Automatic Cuff Blood Pressure Position [Right Arm] Supine 02 Sat by Pulse Oximetry 97 96 95 Oxygen Delivery Method Room Air 09/21/24 07:22 09/21/24 07:30 09/21/24 08:00 Temperature Temperature Source Pulse Rate 70 64 58 L Pulse Rate [Right Radial] Respiratory Rate 13 13 11 L Blood Pressure 97/59 L 96/50 L 91/64 L Blood Pressure [Right Arm] Blood Pressure Mean 73 Blood Pressure Mean [Right Arm] Blood Pressure Source [Right Arm] Blood Pressure Position [Right Arm] 02 Sat by Pulse Oximetry 95 95 94 L Oxygen Delivery Method 09/21/24 08:30 09/21/24 09:00 Temperature Temperature Source Pulse Rate 58 L Pulse Rate [Right Radial] Respiratory Rate 11 L 12 Blood Pressure 90/48 L 93/48 L Blood Pressure [Right Arm] Blood Pressure Mean 63 59 Blood Pressure Mean [Right Arm] Blood Pressure Source [Right Arm] Blood Pressure Position [Right Arm] 02 Sat by Pulse Oximetry 94 L Oxygen Delivery Method Lab Data Lab results reviewed: Yes I reviewed the patient's lab results. Lab Results 09/21/24 06:11: WBC 7.3, RBC 4.70, Hgb 10.5 L, Hct 34.7 L, MCV 73.8 L, MCH 22.3 L, MCHC 30.3 L, RDW 18.8 H, Plt Count 251, MPV 10.0, Neut % (Auto) 68.4, Lymph % (Auto) 25.3, Wallace % (Auto) 4.8, Eos % (Auto) 0.8, Baso % (Auto) 0.4, Neut # (Auto) 5.0, Lymph # (Auto) 1.8, Wallace # (Auto) 0.4, Eos # (Auto) 0.1, Baso # (Auto) 0.0, D-Dimer 0.41, Sodium 137, Potassium 3.8, Chloride 101, Carbon Dioxide 28, Anion Gap 11.8, BUN 11, Creatinine 0.70, Estimated Creat Clear 89, Estimated GFR 93, Est GFR ( Amer) 113, Glucose 121 H, Calcium 9.1, Total Bilirubin 0.4, AST 18, ALT 28, Alkaline Phosphatase 66, Troponin I < 0.01, Total Protein 7.4, Albumin 4.0, Globulin 3.4 H, Albumin/Globulin Ratio 1.2, Serum HCG, Qual Negative 09/21/24 08:52: Troponin I < 0.01 09/21/24 06:11 09/21/24 06:11 Orders (Tests/Meds): ED MEDICATIONS Discontinued Medications Generic Name Dose Route Start Last Admin Trade Name Freq PRN Reason Stop Dose Admin Acetaminophen 1,000 mg 09/21/24 05:56 09/21/24 06:05 Acetaminophen 500mg Tab PO 09/21/24 05:57 1,000 mg ONCE ONE Administration Aspirin 324 mg 09/21/24 05:56 09/21/24 06:05 Aspirin 81mg Chewable Tablet PO 09/21/24 05:57 324 mg ONCE ONE Administration Iopamidol 70 ml 09/21/24 07:14 09/21/24 07:15 Iopamidol-370 (76%);100ml Bottle IV 09/21/24 07:15 70 ml ONCE ONE Administration Sodium Chloride 10 ml 09/21/24 07:14 09/21/24 07:15 Sodium Chloride 0.9% 10ml Syr (Rad Only) IV 09/21/24 07:15 10 ml ONCE ONE Administration Sodium Chloride 50 ml 09/21/24 07:14 09/21/24 07:14 0.9 % Sodium Chloride 50 Ml Vial IV 09/21/24 07:15 50 ml ONCE ONE Administration ORDERS Category Date Time Status CT angio chest PE protocol Stat Cat Scan 09/21/24 05:56 Completed CBC w/Auto Diff [Complete Blood Count Auto Diff] Stat Lab 09/21/24 06:11 Completed CMP [Comprehensive Metabolic Panel] Stat Lab 09/21/24 06:11 Completed D-Dimer Stat Lab 09/21/24 06:11 Completed HCG Qualitative, Serum Stat Lab 09/21/24 06:11 Completed Troponin I Q3H Lab 09/21/24 06:11 Completed Troponin I Q3H Lab 09/21/24 08:52 Completed CA venous doppler LE RT Stat Y 09/21/24 07:24 Completed ECG Data Tracing #1: I reviewed this ECG and interpreted as documented below: Sinus rhythm, rate of 63, no significant ST changes, normal intervals ECG initial impression date: 09/21/24 ECG initial impression time: 06:00 HEART Score History (anamnesis): Slightly suspicious ECG: Normal Age: 45-65 years Risk factors: No known risk factors Troponin: </= normal limit HEART Score: 1 Medical Decision Narrative: 38-year-old female with history of COPD presents for chest pain/tightness and shortness of breath for few hours upon wakening. History was obtained via interactive discussion with patient, chart review. On arrival, patient is [afebrile, hemodynamically stable, satting appropriately, alert, oriented x4, GCS 15], moving all extremities spontaneously. Full physical exam performed and significant for clear lungs bilaterally without evidence of COPD exacerbation, right lower extremity swelling compared to the contralateral side. Differential includes but is not limited to PE, ACS, anxiety, COPD exacerbation, pneumonia. Patient was given aspirin, Tylenol for symptomatic management and correction of underlying abnormalities. Workup initiated including CBC CMP troponin D-dimer CT angio PE. On re-evaluation, patient [remains afebrile, HD stable.] Laboratory workup independently interpreted by me and significant for stable anemia, no initial troponin, no significant electrolyte derangement. D-dimer is negative, but given high clinical suspicion we will perform CT angiogram regardless. At this time care handed off to oncoming physician. <Saurabh High MD - Last Filed: 09/21/24 09:38> Vital Signs: 09/21/24 05:58 09/21/24 06:30 09/21/24 07:00 Temperature 98 F Temperature Source Oral Pulse Rate 59 L 59 L Pulse Rate [Right Radial] 71 Respiratory Rate 16 Blood Pressure 98/66 L 104/58 L Blood Pressure [Right Arm] 118/65 Blood Pressure Mean Blood Pressure Mean [Right Arm] 82 Blood Pressure Source [Right Arm] Automatic Cuff Blood Pressure Position [Right Arm] Supine 02 Sat by Pulse Oximetry 97 96 95 Oxygen Delivery Method Room Air 09/21/24 07:22 09/21/24 07:30 09/21/24 08:00 Temperature Temperature Source Pulse Rate 70 64 58 L Pulse Rate [Right Radial] Respiratory Rate 13 13 11 L Blood Pressure 97/59 L 96/50 L 91/64 L Blood Pressure [Right Arm] Blood Pressure Mean 73 Blood Pressure Mean [Right Arm] Blood Pressure Source [Right Arm] Blood Pressure Position [Right Arm] 02 Sat by Pulse Oximetry 95 95 94 L Oxygen Delivery Method 09/21/24 08:30 09/21/24 09:00 Temperature Temperature Source Pulse Rate 58 L Pulse Rate [Right Radial] Respiratory Rate 11 L 12 Blood Pressure 90/48 L 93/48 L Blood Pressure [Right Arm] Blood Pressure Mean 63 59 Blood Pressure Mean [Right Arm] Blood Pressure Source [Right Arm] Blood Pressure Position [Right Arm] 02 Sat by Pulse Oximetry 94 L Oxygen Delivery Method Lab Data Lab Results 09/21/24 06:11: WBC 7.3, RBC 4.70, Hgb 10.5 L, Hct 34.7 L, MCV 73.8 L, MCH 22.3 L, MCHC 30.3 L, RDW 18.8 H, Plt Count 251, MPV 10.0, Neut % (Auto) 68.4, Lymph % (Auto) 25.3, Wallace % (Auto) 4.8, Eos % (Auto) 0.8, Baso % (Auto) 0.4, Neut # (Auto) 5.0, Lymph # (Auto) 1.8, Wallace # (Auto) 0.4, Eos # (Auto) 0.1, Baso # (Auto) 0.0, D-Dimer 0.41, Sodium 137, Potassium 3.8, Chloride 101, Carbon Dioxide 28, Anion Gap 11.8, BUN 11, Creatinine 0.70, Estimated Creat Clear 89, Estimated GFR 93, Est GFR ( Amer) 113, Glucose 121 H, Calcium 9.1, Total Bilirubin 0.4, AST 18, ALT 28, Alkaline Phosphatase 66, Troponin I < 0.01, Total Protein 7.4, Albumin 4.0, Globulin 3.4 H, Albumin/Globulin Ratio 1.2, Serum HCG, Qual Negative 09/21/24 08:52: Troponin I < 0.01 Orders (Tests/Meds): ED MEDICATIONS Discontinued Medications Generic Name Dose Route Start Last Admin Trade Name Francisco PRN Reason Stop Dose Admin Acetaminophen 1,000 mg 09/21/24 05:56 09/21/24 06:05 Acetaminophen 500mg Tab PO 09/21/24 05:57 1,000 mg ONCE ONE Administration Aspirin 324 mg 09/21/24 05:56 09/21/24 06:05 Aspirin 81mg Chewable Tablet PO 09/21/24 05:57 324 mg ONCE ONE Administration Iopamidol 70 ml 09/21/24 07:14 09/21/24 07:15 Iopamidol-370 (76%);100ml Bottle IV 09/21/24 07:15 70 ml ONCE ONE Administration Sodium Chloride 10 ml 09/21/24 07:14 09/21/24 07:15 Sodium Chloride 0.9% 10ml Syr (Rad Only) IV 09/21/24 07:15 10 ml ONCE ONE Administration Sodium Chloride 50 ml 09/21/24 07:14 09/21/24 07:14 0.9 % Sodium Chloride 50 Ml Vial IV 09/21/24 07:15 50 ml ONCE ONE Administration ORDERS Category Date Time Status CT angio chest PE protocol Stat Cat Scan 09/21/24 05:56 Completed CBC w/Auto Diff [Complete Blood Count Auto Diff] Stat Lab 09/21/24 06:11 Completed CMP [Comprehensive Metabolic Panel] Stat Lab 09/21/24 06:11 Completed D-Dimer Stat Lab 09/21/24 06:11 Completed HCG Qualitative, Serum Stat Lab 09/21/24 06:11 Completed Troponin I Q3H Lab 09/21/24 06:11 Completed Troponin I Q3H Lab 09/21/24 08:52 Completed CA venous doppler LE RT Stat Y 09/21/24 07:24 Completed HEART Score HEART Score: 1 Medical Decision Narrative: 38-year-old female with history of COPD presents for chest pain/tightness and shortness of breath for few hours upon wakening. History was obtained via interactive discussion with patient, chart review. On arrival, patient is [afebrile, hemodynamically stable, satting appropriately, alert, oriented x4, GCS 15], moving all extremities spontaneously. Full physical exam performed and significant for clear lungs bilaterally without evidence of COPD exacerbation, right lower extremity swelling compared to the contralateral side. Differential includes but is not limited to PE, ACS, anxiety, COPD exacerbation, pneumonia. Patient was given aspirin, Tylenol for symptomatic management and correction of underlying abnormalities. Workup initiated including CBC CMP troponin D-dimer CT angio PE. On re-evaluation, patient [remains afebrile, HD stable.] Laboratory workup independently interpreted by me and significant for stable anemia, no initial troponin, no significant electrolyte derangement. D-dimer is negative, but given high clinical suspicion we will perform CT angiogram regardless. At this time care handed off to oncoming physician. Saurabh High MD at 0700, I assessed the patient and patient noted to have right lower extremity pitting edema and mildly increased in size compared to the left. No history of blood clots. Will obtain right lower extremity ultrasound to evaluate for DVT. Pending CT pulmonary embolism at this time. DVT ultrasound of the right lower extremity was negative. CT PE interpreted by me personally. No evidence of pulmonary embolism. No pneumonia. Repeat 0900 troponin shows repeat less than 0.01. On reassessment, patient remained in stable condition. Her workup today is unremarkable for any acute pathology. She was encouraged to follow-up with her primary care physician. Return precautions were given. All questions were answered. She demonstrated understanding and was agreement this plan. She was then discharged from the emergency department in stable condition. Procedures <Mehul Osuna MD - Last Filed: 09/21/24 07:12> Risk/Benefits of Procedure(s) Were Explained: Yes Critical Care <Mehul Osuna MD - Last Filed: 09/21/24 07:12> Critical Care Time Critical Care Time: No
[2024-09-21] MEDS: ASPIRIN 81MG CHEWABLE TABLET 324 MG PO (06:05)
[2024-09-21] MEDS: ACETAMINOPHEN 500MG TAB 1000 MG PO (06:05)
[2024-09-21 06:21] LABS: Basophils % 0.4 % (0.1-2.0); Eosinophils # 0.1 Kmm3 (0.0-0.4); Eosinophils % 0.8 % (0.1-12.0); Hematocrit 34.7 % (37.0-47.0); Hemoglobin 10.5 g/dL (12.2-16.2); Immature Granulocytes # 0.02 10^3uL; Immature Granulocytes % 0.3 %; Lymphocytes # 1.8 K/mm3 (0.7-4.5); Lymphocytes % 25.3 % (10-50); Mean Corpuscular HGB Conc 30.3 g/dL (31.8-35.4); Mean Corpuscular Hemoglobin 22.3 pg (27.0-31.2); Mean Corpuscular Volume 73.8 fl (81-99); Monocytes # 0.4 K/mm3 (0.1-1.0); Monocytes % 4.8 % (1.7-9.3); Neutrophils % 68.4 % (37.0-80.0); Nucleated Red Blood Cells # 0 10^3/uL; Nucleated Red Blood Cells % 0 %; Platelet Count 251 K/mm3 (142-424); Red Cell Distribution Width 18.8 % (11.5-17.5); White Blood Count 7.3 K/mm3 (4.8-10.8)
[2024-09-21 06:31] LABS: Alanine Aminotransferase 28 U/L (12-78); Alkaline Phosphatase 66 U/L (38-126); Aspartate Amino Transferase 18 U/L (14-36); Bilirubin,Total 0.4 mg/dl (0.2-1.3); Calcium 9.1 mg/dl (8.4-10.2); Carbon Dioxide 28 mmol/L (22.0-30.0); Glucose 121 mg/dl (74-100); Potassium 3.8 mmoL/L (3.5-5.1)
[2024-09-21 06:32] LABS: Albumin/Globulin Ratio 1.2 (1.1-1.8); Anion Gap 11.8 mEq/L (5-15); Blood Urea Nitrogen 11 mg/dl (7-17); Chloride 101 mmol/L (98-107); Creatinine Clearance Estimated 89 mL/min (50-200); Estimated Glomerular Filt Rate 93 ml/min (>60); GFR (African American) 113 ML/MIN (>60); Globulin 3.4 g/dL (1.3-3.2); Sodium 137 mmol/L (136-145); Total Protein,Serum 7.4 g/dl (6.3-8.2)
[2024-09-21 06:36] LABS: D-Dimer 0.41 ug/mL (0.0-0.5)
[2024-09-21 06:47] LABS: Troponin I < 0.01 ng/ml (0.00-0.034)
[2024-09-21 06:55] LABS: HCG Qualitative, Serum Negative (Negative)
--- NOTE | 2024-09-21 07:05 | PC.NURSE ---
pt to ct via wheelchair
[2024-09-21] MEDS: 0.9 % SODIUM CHLORIDE 50 ML VIAL IV (07:14)
[2024-09-21] MEDS: IOPAMIDOL-370 (76%);100ML BOTTLE 70 ML IV (07:15)
[2024-09-21] MEDS: SODIUM CHLORIDE 0.9% 10ML SYR (RAD ONLY) 10 ML IV (07:15)
--- NOTE | 2024-09-21 07:16 | PC.NURSE ---
pt back to room
--- NOTE | 2024-09-21 07:24 | CA_ITS ---
FINAL REPORT TECHNIQUE: Multiple transverse and longitudinal images were performed of the right femoral-popliteal deep venous system with augmentation and compression maneuvers. CLINICAL HISTORY: RIGHT LEG PAIN COMPARISON: None FINDINGS: Right lower extremity duplex ultrasound demonstrates normal flow in the deep venous system. There is no abnormal echogenicity to suggest thrombus. There is normal compression and augmentation. IMPRESSION: No evidence of right DVT. Reviewed, Interpreted and Dictated by Payton Garvey MD Transcribed by Emily Casillas Authenticated and . [facility]
--- NOTE | 2024-09-21 07:24 | PC.NURSE ---
DVT scan ordered, pt took pants off, blanket given to pt.
--- NOTE | 2024-09-21 07:37 | PC.NURSE ---
ultrasound at bedside for DVT scan
--- NOTE | 2024-09-21 07:46 | PC.NURSE ---
per tech report, dvt scan negative
--- NOTE | 2024-09-21 08:53 | PC.NURSE ---
2nd trop sent at this time
[2024-09-21 09:27] LABS: Troponin I < 0.01 ng/ml (0.00-0.034)
== END 2024-09-21 09:47 | disposition home or self-care (01) ==
PROVIDERS: Emergency Medicine; Emergency Provider Student in an Organized Health Care Education/Training Program
DX: R07.9 Chest pain, unspecified (principal); R06.00 Dyspnea, unspecified; J44.1 Chronic obstructive pulmonary disease with (acute) exacerbation; J45.901 Unspecified asthma with (acute) exacerbation; F17.210 Nicotine dependence, cigarettes, uncomplicated
CPT/HCPCS: 71275; 80053; 84484; 84703; 85025; 85378; 93005; 93971; 99285; Q9967

== ENCOUNTER 2024-11-15 15:29 | Emergency (ER) | payer MEDICAID, SELFPAY ==
--- OUTSIDE RECORDS SUMMARY | 2024-05-19 07:45 | XMS_ITS ---
Author Organization [facility] Address [address] [place] [address] Care Team Providers Care Senior Software Test Engineer Name Role Phone [facility] Unavailable [phone] REASON FOR VISIT Headache \/ Pain, Patient requesting service from [employer] competition Social History Tobacco Use: Social History Observation Description Date Details (start date - stop date) Former Smoker NA - NA Tobacco Control (Standard) Question Answer Notes Tobacco use: Former smoker Vital Signs Height 62 in 05/19/2024 Weight 229 lbs 05/19/2024 BMI 41.88 kg/m2 05/19/2024 Patient Reported Normal Bloo d PressurePatient Reported Normal Temperature Encounters Encounter Location Date Provider Diagnosis [facility] [address] [place] [address] 05/19/2024 [facility] Assessments Encounter Date Diagnosis (ICD [...] * Julio MARTINEZ B:1985 (39 yo F)Acc No.[id number]:05/19/2024 IMPORT Patient: Huang KAM Provider: Shirley LEW HELIX :1985 A ge:38 Y S ex:Female Date:05/19/2024 Phone: Address:[facility] [address], [id number] Subjective: * Chief Complaints: * 1 . Headache \/ Pain. 2. Patient requesting service from promotional [employer] competition. * HPI: T [facility] Complaint History: [...] - Migraine, unspecified, not intractable, without status owwtwtnliejC25.40 - Drug-induced headache, not elsewhere classified, not ulgcgdluzwaV64.905? - Adverse effect of unspecified drugs, medicaments and biological substances, episode of care wsegwzzdejpJ70.009 - Cluster headache syndrome, unspecified, not mgpcphotvvyJ81.9 - Unspecified xfbpciaoH89.90 - Acute pancreatitis without necrosis or infection, mxfkxqmjtpiW10.9 - Nontraumatic intracranial hemorrhage, krqolfhegwfP30.6 - Other giant cell arteritis- -----AI TRIAGE [...] Visit Code: * Procedure Codes: Images * [id number] * Electronic signature of [facility] on 11/15/2024 at 03:58 PM EDT Sign off status: Pending * Provider: Shirley [facility] Date: 05/19/2024 Generated for Garret erwin/Marci/Sunni on: 0 11/15/2024 03:58 PM EDT History and Physical Notes * HPI [...]
[2024-11-15 15:40] VITALS: BP 131/79; PULSE 82; RESP 18; TEMP 36.6; O2SAT 98; BMI 44.4
--- NOTE | 2024-11-15 15:54 | PC.NURSE ---
Provider at chair side assessing patient.
--- OUTSIDE RECORDS SUMMARY | 2024-11-15 15:59 | XMS_ITS | Continuity of Care Document ---
Author Organization [facility] Address [address] [place] [address] Assessment No assessment recorded. Plan of Treatment Reminders Order Date Submit Date Provider Last Modified By Organization Details Last Modified Time Details Appointments Establish ed Patient 20 2024 08:00A M Adán Redding PA-C Not available Not available Not available Lab None recorded. Referral None recorded. Procedures None recorded. Surgeries None recorded. Imaging None recorded. Medication Orders None recorded. Patient TargetsNo targets recorded. Patient Instructions Encounter Date Encounter Id Patient Instructions Last Modified By Organization Details Last Modified Time 09/26/2024 [id number] chronic obstructive pulmonary disease (COPD): care instructions [email or web address] Not available 09/26/2024 10:50:38 learning about copd and how to prevent lung infections [email or web address] Not available 09/26/2024 10:50:38 Reason for Referral None Reported. Results Created Date Observation Date Name Description Value Unit Range Abnormal Flag Note LastModifiedBy Organization Detail LastModifiedTime 09/27/1909/26/2024 fannie metry No observ ation record ed. [email or web address] [facility] [address] [place], [address], 10/04/2024 08:01:25 10/05/1910/04/2024 elect rocar diogr am No observ ation record ed. [email or web address] [address], [address], 10/04/2024 08:59:25 10/05/19 elect rocar diogr am No observ ation record ed. [email or web address] [address], [place], [address], 10/04/2024 08:58:04 Result Notes None recorded. Problems Name Problem SNOMED Code Status Onset Date Resolution Date Notes Provider Name and Address Organization Details Recorded Time Chronic obstructive pulmonary disease 43807316 Active 2024 Adán Redding PA-C [address], [place], [address], [place] - [facility] 10:29:59 Morbid obesity 216658143 Active 2024 Adán Redding PA-C [address], [place], [address], [place] [facility] 10:30:24 Nicotine dependence 61517572 Active 2024 Adán Redding PA-C [address], [place], [address], [place] [facility] 5 10:34:44 Acute exacerbatio n of chronic obstructive pulmonary disease 075621083 Active 2024 Aádn Redding PA-C [address], [place], [address], [place] [facility] 10:37:12 History of drug abuse 779531720 Active 2024 Adán Redding PA-C [address], [place], [address], [place] [facility] 5 10:37:34 Anxiety 20358103 Active 2024 Adán Redding PA-C [address], [place], [address], [place] [facility] 08:46:13 Seasonal allergy 333122905 Active 2024 Adán Redding PA-C [address], [place], [address], [place] [facility] 09:06:46 Bipolar disorder 77134625 Active 2024 Adán Redding PA-C [address], [place], [address], [place] - [facility] 5 09:07:21 Peripheral edema 566013597 Active 2024 Adán Redding ADI-C [address], [place], [address], [place] - [facility] 5 08:59:40 Fatigue 34709075 Active 2024 Adán Redding PA-C [address], [place], [address], [place] - [facility] 5 09:03:41 Iron deficiency anemia 24685265 Active 2024 Adán Redding ADI-C [address], [place], [address], [place] - [facility] 5 07:44:37 Reactive airway disease 924710059682 Active 2024 Adán Redding ADI-C [address], [place], [address], [place] - [facility] 5 08:09:27 Chest discomfort 077908336 Active 2024 Adán Redding ADI-C [address], [place], [address], [place] - [facility] 5 08:32:34 Nausea 582208663 Active 2024 ADI Yarbrough-C [address], [place], [address], [place] - [facility] 5 08:57:46 Problem Notes None recorded. Procedures Surgical History Date Name Laterality Status Provider Name and Address Organization Details Recorded Time 09/26/2024 Spirometry - Pre and Post completed Maria Luisa Jareth [place] - [facility] 09/26/2024 09:10:35 Imaging Results None recorded. Procedure Notes None recorded. Medical Equipment None Reported. Allergies Allergen ID Allergen Name Allergen Category Reaction Reaction Severity Criticality Documentation Date Start Date Code Code System Note Provider Name and Address Organization Details Recorded Time 979859 Product containin g penicilli n (product) medicatio n Not available Not available Not available 07/30/2024 42282 8001 SNOMED Danni silver, [place] - [facility] 5 09:40:55 477997 lidocaine medicatio n Not available Not available Not available 07/30/2024 6387 RxNorm Danni Goldstein null, [place] - [facility] 09:41:05 109060 benzocain e medicatio n Not available Not available Not available 07/30/2024 1399 RxNorm Danni Goldstein null, [place] - [facility] 09:41:16 Medications Name Sig Start Date Stop Date Status Note LastModified by Organization Details LastModified Time nicotine 14 mg/24 hr daily transdermal patch Apply one 14 mg patch every day for 6 weeks, then apply 7 mg patch qd x2wk; Info: stop cigarette use at tx onset 2024 active Not Available Not Available Not Avai lable albuterol sulfate 2.5 mg/3 mL (0.083 %) solution for nebulization Inhale 3 mL every 4-6 hours by nebulizatio n route as needed. 2024 active Not Available Not Available Not Avai lable ferrous sulfate 325 mg (65 mg iron) tablet Take 1 tablet every day by oral route. 2024 active Not Available Not Available Not Avai lable Advair Diskus 250 mcg-50 mcg/dose powder for inhalation Inhale 1 puff twice a day by inhalation route. 2024 active Not Available Not Available Not Avai lable hydroxyzine HCl 25 mg tablet Take 2 tablets 3 times a day by oral route as needed. 2024 active Not Available Not Available Not Avai lable ergocalcifer ol (vitamin D2) 1,250 mcg (50,000 unit) capsule Take 1 capsule every week by oral route as directed. 2024 active Not Available Not Available Not Avai lable ondansetron 4 mg disintegrati ng tablet Place 1 tablet twice a day by translingua l route as needed. 2024 active Not Available Not Available Not Avai lable loratadine 10 mg tablet Take 1 tablet every day by oral route. 2024 active Not Available Not Available Not Avai lable nicotine 7 mg/24 hr daily transdermal patch Apply one 14 mg patch every day for 6 weeks, then apply 7 mg patch qd x2wk; Info: stop cigarette use at tx onset 2024 active Not Available Not Available Not Avai lable nicotine (polacrilex) 4 mg buccal lozenge Take 1 tablet every 2 hours by oral route as needed. 2024 active Not Available Not Available Not Avai lable methadone active Not Available Not Radha ilable Not Available Symbicort 160 mcg-4.5 mcg/actuatio n HFA aerosol inhaler Inhale 2 puffs twice a day by inhalation route, for to replace advair inhaler, stop advair start symbicort. 2024 active Not Available Not Available Not Avai lable Combivent Respimat 20 mcg-100 mcg/actuatio n solution for inhalation Inhale 1 puff 4 times a day by inhalation route. 2024 active Not Available Not Available Not Avai lable Combivent Respimat 1 puff inhaled qid active Not Available Not Available Not Available Vitals Date Recorded Body height Body mass index (BMI) Body weight Body temperature Provider Name and Address Organization Details Last Updated DateTime 09/26/2024 160.02 cm 46.9 kg/m2 727051.98 g 97.9 [degF] Maria Luisa Jareth [place] - [facility] 09/26/2024 08:53:58 Social History Question Answer Notes LastModified by Organizat ion Details LastModified Time Tobacco Smoking Status Current Every Day Smoker Danni silver [place] - [facility] 07/30/2024 09:45:17 What Was The Date Of Your Most Recent Tobacco Screening? 07/30/2024 [email or web address] Information not available 07/30/2024 How Many Children Do You Have? 5 [email or web address] Information not available 07/30/2024 What Is Your Relationship Status? [email or web address] Information not available 07/30/2024 Are You Sexually Active? Yes Information not available 07/30/2024 At What Age Did You Start Smoking Tobacco? 18 [email or web address] Information not available 07/30/2024 How Much Tobacco Do You Smoke? 0.5 PPD [email or web address] Information not available 07/30/2024 Has Tobacco Cessation Counseling Been Provided? Yes [email or web address] Information not available 07/30/2024 On What Date Was Tobacco Cessation Counseling Provided? 07/30/2024 [email or web address] Information not available 07/30/2024 Sex: Female Functional Status Question Answer Note LastModified by Organizat ion Details LastModified Time Do you use any illicit or recreational drugs? No Sober 2yrs, DOC Heroin attends [facility]ad[facility] Information not available 07/30/2024 What is your level of alcohol consumption? None [email or web address] Information not available 07/30/2024 Mental Status None recorded. Family History Nothing Reported. Medical History No medical history recorded. Gynecological History Statement/Question Response LMP Approximate Date of LMP 07/25/2024 Obstetrics History GPAL:G 0 P 0 0 0 0 Past Encounters Encounter ID Performer Location Encounter Start Date Encounter Closed Date Diagnosis/Indication Diagnosis SNOMED-CT Code Diagnosis ICD10 Code Diagnosis Note [id number] Adán Redding PA-C [facility] [address] [place] [address] 09/13/2024 07:58:47 09/13/2024 09:14:52 Chronic obstructive pulmonary disease 25907533 J44.9 obtain spirometry , trial different maintenanc e inhaler Bipolar disorder 2693169 4 F31.9 previously diagnosed Screening for disorder 846747519 Z13.29 Z13.0 Z13.228 Peripheral edema 0506630 00 R60.0 Check labwork, further diagnositi c decision making pending results. Fatigue 15365456 R53.83 [id number] Adán Redding PA-C [facility] [address] [address] 09/26/2024 08:39:49 09/26/2024 10:21:52 Chronic obstructive pulmonary disease 14016525 J44.9 obtain spirometry , trial different maintenanc e inhaler Dyspnea 571541167 R06.00 Health Concerns Section Related Observation LastModified by Organization Detai ls LastModified Time None Recorded Concern Status LastModified by Organization Details LastModified Time None Recorded Payers Encounter Date Sequence Insurance Name Policy Number Policy Foster Covered Member ID Foster Member ID Guarantor Name 09/26/2024 1 [employer] (MEDICAID REPLACEMENT - HMO) Huang Lopez [id number] Huang keating Notes Date Note Type Note Provider Name a nd Address Organization Details Recorded Time 09/26/2024 text/html Spirometry AID Yarbrough [address], [place], [address], [place] - [facility] 09/30/2024 20:25:42 OBGyn Episode No OBEpisode recorded.
--- OUTSIDE RECORDS SUMMARY | 2024-11-15 15:59 | XMS_ITS | Patient Health Record ---
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 Phone [facility] Unavailable [phone] MORAGN MAJANO Unavailable [phone] Allergies Allergen (clinical drug ingredient) Drug/Non Drug Allergy documented on EMR Reaction Allergy Type Onset Date Status lidocaine Lidocaine Unknown Drug Allergy Active Penicillin anaphylaxis Drug Allergy Acti ve Shellfish (FN) Shellfish-derived Products shortness of breath Drug Allergy Active Reason For Referral No Information Medications Medication SIG (Take, Route, Frequency, Duration) Notes Start Date End Date Status Ondansetron 4 MG Oral for 2 Days Not-Taking Clindamycin HCl 150 MG Oral for 10 Days Not-Taking Ibuprofen 800 MG Oral for 7 Days Not-Taking Ketorolac Tromethamine 10 MG 1 tablet with food or milk as needed Orally every 6 hrs for 5 days As needed for pain 05/19/2024 Active Acetaminophen-Codeine 300-30 MG Oral for 4 Days Not-Taking Lurasidone HCl 20 MG TAKE 1 TABLET BY [facility] ONCE DAILY WITH AT LEAST 350 CALORIES Oral for 30 Days Not-Taking Mirtazapine 7.5 MG Oral for 30 Days Not-Taking Social History Tobacco Use: Social History Observation Description Date Details (start date - stop date) Current Smoker NA - NA Tobacco Control (Standard) Question Answer Notes Tobacco use: Current smoker How often do you smoke cigarettes? Every day How many cigarettes a day do you smoke? 11-20 Problems Problem Type SNOMED Code ICD Code Onset Dates Problem Status W/U Status Risk Notes Problem [id number] Intractable migraine with status migrainosus, unspecified migraine type (G43.911) Active confirmed Vital Signs Height 62 in 05/19/2024 Temperature: Normal Blood pressure: High Weight 229 lbs 05/19/2024 Temperature: Normal Blood pressure: High BMI 41.88 kg/m2 05/19/2024 Temperature: Normal Blood pressure: High Encounters Encounter Location Date Provider Diagnosis [facility] [address] [place] [address] 05/19/2024 MORGAN MAJANO Intractable migraine with status migrainosus, unspecified migraine type G43.911 Assessments Encounter Date Diagnosis (ICD Code) Assessment Notes Treatment Notes Treatment Clinical Notes Section Notes 05/19/2024 Intractable migraine with status migrainosus, unspecified migraine type (ICD-10 - G43.911) IF NO IMPROVEMENT WITH TORADOL, SHOULD FOLLOW WITH A NEUROLOGIST.DON' T TAKE ANY OTC NSAIDS WHILE TAKING TORADOL REATMENT PLAN Patient here with headache. Type of headache is unspecified given limited information that is available (cluster vs migraine vs tension vs drug related vs infection etc). Patient reports no neuro or psychologic changes concerning enough to send to urgent care or ER at this moment. 1. Try ibuprofen 400-800mg every 8 hours as needed (if not allergic). Another option instead of this is using excedrin migraine (if not allergic). This has some caffeine in case you drink caffeine and may be withdrawing a bit. Tylenol 1000mg every 6 hours is also an option (if not allergic). 2. I can offer tablets of sumatriptan. Take this if the first medications do not work. Can take again after 2 hours if headache returns. Max daily dose should be 100mg. If you are having nausea, we can provide zofran as needed. 3. Recommend to follow up in 3 days. If there are any neurologic changes such as weakness, visual changes, inability to care for self, severe N/V, consider going to urgent care or ER. If you have frequent headaches despite treatment with the above medications, you should highly consider seeing a neurologist.[facility] EDUCATION: HEADACHES Headaches have many possible causes. Most headaches aren't a sign of a more serious problem, and they will get better on their own. Home treatment may help you feel better faster. The doctor has checked you carefully, but problems can develop later. If you notice any problems or new symptoms, get medical treatment right away. Follow-up care is a mittal part of your treatment and safety. Be sure to make and go to all appointments, and call your doctor if you are having problems. It's also a good idea to know your test results and keep a list of the medicines you take. How can you care for yourself at home? Rest in a quiet, dark room until your headache is gone. Close your eyes and try to relax or go to sleep. Don't watch TV or read. Put a cold, moist cloth or cold pack on the painful area for 10 to 20 minutes at a time. Put a thin cloth between the cold pack and your skin. Use a warm, moist towel or a heating pad set on low to relax tight shoulder and neck muscles. Have someone gently massage your neck and shoulders. Take pain medicines exactly as directed. If the doctor gave you a prescription medicine for pain, take it as prescribed. If you are not taking a prescription pain medicine, ask your doctor if you can take an fmry-efn-ghdkczh medicine. Do not ignore new symptoms that occur with a headache, such as a fever, weakness or numbness, vision changes, or confusion. These may be signs of a more serious problem. To prevent headaches Keep a headache diary so you can figure out what triggers your headaches. Avoiding triggers may help you prevent headaches. Record when each headache began, how long it lasted, and what the pain was like (throbbing, aching, stabbing, or dull). Write down any other symptoms you had with the headache, such as nausea, flashing lights or dark spots, or sensitivity to bright light or loud noise. For females, note if the headache occurred near your period. List anything that might have triggered the headache, such as certain foods (chocolate, cheese, wine) or odors, smoke, bright light, stress, or lack of sleep. Find healthy ways to deal with stress. Headaches are most common during or right after stressful times. Take time to relax before and after you do something that has caused a headache in the past. Try to keep your muscles relaxed by keeping good posture. Check your jaw, face, neck, and shoulder muscles for tension, and try relaxing them. When sitting at a desk, change positions often, and stretch for 30 seconds each hour. Get plenty of sleep and exercise. Eat regularly. Long periods without food can trigger a headache. Limit caffeine by not drinking too much coffee, tea, or soda. But don't quit caffeine suddenly, because that can also give you headaches. Reduce eyestrain from computers by blinking frequently and looking away from the computer screen every so often. Make sure you have proper eyewear and that your monitor is set up properly, about an arm's length away. When should you call for help? Call 911 anytime you think you may need emergency care. For example, call if: You have signs of a stroke. These may include: Sudden numbness, paralysis, or weakness in your face, arm, or leg, especially on only one side of your body. Sudden vision changes. Sudden trouble speaking. Sudden confusion or trouble understanding simple statements. Sudden problems with walking or balance. A sudden, severe headache that is different from past headaches. You have a fever and a stiff neck. You have new nausea and vomiting, or you cannot keep down food or fluids. Your headache gets much worse. Watch closely for changes in your health, and be sure to schedule a follow up if: Your headaches get worse, happen more often, or change in some way. You have new symptoms. Your life is disrupted by your headaches. For example, you often miss work, school, or other activities. You do not get better as expected. PATIENT EDUCATION: MIGRAINES Migraines are painful, throbbing headaches that often start on one side of the head. They may cause nausea and vomiting and make you sensitive to light, sound, or smell. Without treatment, migraines can last from 4 hours to a few days. Medicines can help prevent migraines or stop them after they have started. Your doctor can help you find which ones work best for you. Follow-up care is a mittal part of your treatment and safety. Be sure to make and go to all appointments, and call your doctor if you are having problems. It's also a good idea to know your test results and keep a list of the medicines you take. How can you care for yourself at home? Do not drive if you have taken a prescription pain medicine. Rest in a quiet, dark room until your headache is gone. Close your eyes, and try to relax or go to sleep. Don't watch TV or read. Put a cold, moist cloth or cold pack on the painful area for 10 to 20 minutes at a time. Put a thin cloth between the cold pack and your skin. You can purchase online TheraICE caps. Use a warm, moist towel or a heating pad set on low to relax tight shoulder and neck muscles. Have someone gently massage your neck and shoulders. Take your medicines exactly as prescribed. Don't take medicine for headache pain too often. Talk to your doctor if you are taking medicine more than 2 days a week to stop a headache. Taking too much pain medicine can lead to more headaches. These are called medicine-overuse headaches. To prevent migraines Keep a headache diary so you can figure out what triggers your headaches. Avoiding triggers may help you prevent headaches. Record when each headache began, how long it lasted, and what the pain was like. Write down any other symptoms you had with the headache, such as nausea, flashing lights or dark spots, or sensitivity to bright light or loud noise. For females, note if the headache occurred near your period. List anything that might have triggered the headache. Triggers may include certain foods (chocolate, cheese, wine) or odors, smoke, bright light, stress, or lack of sleep. You may have medicine that you take only when you get a migraine and medicine that you take all the time to help prevent migraines. If your doctor has prescribed medicine for when you get a headache, take it at the first sign of a migraine, unless your doctor has given you other instructions. If your doctor has prescribed medicine to prevent migraines, take it exactly as prescribed. Call your doctor if you think you are having a problem with your medicine. Find healthy ways to deal with stress. Migraines are most common during or right after stressful times. Try finding ways to reduce stress like practicing mindfulness or deep breathing exercises. Get plenty of sleep and exercise. But be careful to not push yourself too hard during exercise. It may trigger a headache. Eat meals on a regular schedule. Avoid foods and drinks that often trigger migraines. These include chocolate, alcohol (especially red wine and port), aspartame, monosodium glutamate (MSG), and some additives found in foods (such as hot dogs, ferguson, cold cuts, aged cheeses, and pickled foods). Limit caffeine. Don't drink too much coffee, tea, or soda. But don't quit caffeine suddenly. That can also give you migraines. Do not smoke or allow others to smoke around you. If you need help quitting, talk to your doctor about stop-smoking programs and medicines. These can increase your chances of quitting for good. If you are taking control pills or hormone therapy, talk to your doctor about whether they are triggering your migraines. When should you call for help? Call 911 anytime you think you may need emergency care. For example, call if: You have signs of a stroke. These may include: Sudden numbness, paralysis, or weakness in your face, arm, or leg, especially on only one side of your body. Sudden vision changes. Sudden trouble speaking. Sudden confusion or trouble understanding simple statements. Sudden problems with walking or balance. A sudden, severe headache that is different from past headaches. You have a fever and a stiff neck. Your headache gets much worse. Watch closely for changes in your health, and be sure to schedule a follow up if: Your headaches get worse, happen more often, or change in some way. You have new symptoms. Your life is disrupted by your headaches. For example, you often miss work, school, or other activities. You do not get better as expected. FIRST ASYNCHRONOUS ACUTE CARE VISIT Acute Care Visit: All subsequent visits for your concern addressed today must be conducted via video consultation. Further Management: If your symptoms do not improve, consider scheduling a follow-up video visit for further assessment, or an in-person visit for a more comprehensive evaluation. patient did not fill out headache questionaire 05/19/2024 Other Follow the treatment plan as indicated by the provider. Take any medications as prescribed. If you have any questions about your prescription, ask the pharmacist. This treatment plan is based on the information you have provided to us today. Incomplete disclosure of your medical history, past treatments, or current medications may affect the effectiveness of this treatment. Call 911 anytime you think you may need emergency care. For example, call if:You have severe trouble breathing.You have a seizure.Call your doctor now or seek immediate medical care if:You have trouble breathing.You have a fever with a stiff neck or a severe headache.You have pain or pressure in your chest or belly.You have a fever or cough that returns after getting better.You feel very sleepy, dizzy, or confused.You are not urinating.You have severe muscle pain.You have severe weakness, or you are unsteady.You have medical conditions that are getting worse.Watch closely for changes in your health, and be sure to contact your doctor if:You do not get better as expected.You are having a problem with your medicine. You participated in a [facility] request, considered an asynchronous visit where you provide your symptoms and medical history, and a treatment plan is formulated based on your submission. A treatment plan and patient education were provided based on your submission. If symptoms persist or worsen, you should seek in-person care or call 911 immediately for further evaluation. 05/19/2024 AI TRIAGE SUGGESTED ASSESSMENTS: G43.909 - [...] and provide appropriate treatment. Plan Of Treatment Pending Test Test Name Order Date COMPREHENSIVE METABOLIC PANEL (76727) CBC (INCLUDES DIFF/PLT) (6399) 5 SED RATE BY MODIFIED WESTERGREN (809) Insurance Providers Payer Name Payer Address Payer Phone Subscriber Number Group Number Insured Name Patient Relationship to Insured Coverage Start Date Coverage End Date [employer] Medicaid [address] [place] [phone] [id number] Huang Calloway Self - patient is the insured Medical (General) History Medical History History ICD Code Degenerative disc disease 2005
--- OUTSIDE RECORDS SUMMARY | 2024-11-15 15:59 | XMS_ITS | Continuity of Care Document ---
Author Organization [facility] Address [address] [place] [address] Assessment Encounter Date Assessment Date Assessment LastModified by Organization Details LastModified Time 10/04/2024 10/04/2024 recheck labs 3months [email or web address] Not available 10/04/2024 08:34:09 Plan of Treatment Reminders Order Date Submit Date Provider Last Modified By Organization Details Last Modified Time Details Appointments Establish ed Patient 20 2024 08:00A M Adán Redding PA-C Not available Not available Not available Lab None recorded. Referral cardiolog ist referral 2024 025 [facility], [place], [address], 11/13/2024 16:50:09 Procedures None recorded. Surgeries None recorded. Imaging electroca rdiogram 2024 025 [facility], [address] [place] [address], [address], 10/04/2024 08:57:48 Medication Orders hydroxyzi ne HCl 25 mg tablet [address], [address], 10/04/2024 08:34:42 Symbicort 160 mcg-4.5 mcg/actua tion HFA aerosol inhaler [address], [place], [address], 10/04/2024 08:34:42 Patient TargetsNo targets recorded. Patient Instructions Encounter Date Encounter Id Patient Instructions Last Modified By Organization Details Last Modified Time 10/04/2024 [id number] chronic obstructive pulmonary disease (COPD): care instructions Not available 10/04/2024 08:34:40 learning about copd and how to prevent lung infections [email or web address] Not available 10/04/2024 08:34:41 All questions answered and pt/guardian satisfied with treatment plan. Call with changes RTC or ED if symptoms change or worsen Keep next interval checkup Cont. 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 [address] [place], [address], 10/04/2024 08:01:25 10/05/1910/04/2024 elect rocar diogr am No observ ation record ed. [address], [address], 10/04/2024 08:59:25 10/05/19 elect rocar diogr am No observ ation record ed. [address], [address], 10/04/2024 08:58:04 Result Notes None recorded. Problems Name Problem SNOMED Code Status Onset Date Resolution Date Notes Provider Name and Address Organization Details Recorded Time Chronic obstructive pulmonary disease 98266315 Active 2024 Adán Redding PA-C [address], [place], [address], [place] - [facility] 10:29:59 Morbid obesity 723369788 Active 2024 Adán Redding PA-C [address], [place], [address], [place] [facility] 10:30:24 Nicotine dependence 06352973 Active 2024 Adán Redding PA-C [address], [place], [address], [place] [facility] 10:34:44 Acute exacerbatio n of chronic obstructive pulmonary disease 242031615 Active 2024 Adán Redding PA-C [address], [place], [address], [place] [facility] 10:37:12 History of drug abuse 458008887 Active 2024 Adán Redding PA-C [address], [place], [address], [place] [facility] 10:37:34 Anxiety 19598992 Active 2024 Adán Redding PA-C [address], [place], [address], [place] [facility] 08:46:13 Seasonal allergy 743515994 Active 2024 Adán Redding PA-C [address], [place], [address], [place] [facility] 09:06:46 Bipolar disorder 04283064 Active 2024 Adán Redding PA-C [address], [place], [address], [place] [facility] 09:07:21 Peripheral edema 866279023 Active 2024 Adán Redding PA-C [address], [place], [address], [place] [facility] 08:59:40 Fatigue 79838837 Active 2024 Adán Redding PA-C [address], [place], [address], [place] - [facility] 09:03:41 Iron deficiency anemia 30700185 Active 2024 Adán Redding PA-C [address], [place], [address], [place] - [facility] 07:44:37 Reactive airway disease 917679932731 Active 2024 Adán Redding PA-C [address], [place], [address], [place] - [facility] 08:09:27 Chest discomfort 347500834 Active 2024 Adán Redding PA-C [address], [place], [address], [place] - [facility] 08:32:34 Nausea 128834507 Active 2024 Adán Redding PA-C [address], [place], [address], [place] - [facility] 08:57:46 Problem [...] Name and Address Organization Details Recorded Time 567125 Product containin g penicilli n (product) medicatio n Not available Not available Not available 07/30/2024 19056 8001 SNOMED Danni Goldstein null, [place] - [facility] 09:40:55 490181 lidocaine medicatio n Not available Not available Not available 07/30/2024 6387 RxNorm Danni Goldstein [place] - [facility] 09:41:05 344716 benzocain e medicatio n Not available Not available Not available 07/30/2024 1399 RxNorm Danni Goldstein [place], [place] - [facility] 09:41:16 Medications Name Sig Start Date Stop [...] height Body mass index (BMI) Body weight Heart rate Oxygen saturation Oxygen saturation in Arterial blood by Pulse oximetry Systolic And Diastolic Provider Name and Address Organization Details Last Updated DateTime 160.02 cm 46.2 kg/m2 407442. 61 g 84 /min 97 % 97 % 118/74 mm[Hg] Danni Angelita [place] - [facility] 08:03:21 Social History Question Answer Notes LastModified by Organizat ion Details LastModified Time Tobacco Smoking Status Current Every Day Smoker Danni Angelita [facility], [place] - [facility] 07/30/2024 09:45:17 What Was The Date Of Your Most Recent Tobacco Screening? 07/30/2024 [email or web address] Information not available 07/30/2024 How Many Children Do You Have? 5 [email or web address] Information not available 07/30/2024 What Is Your Relationship Status? [email or web address] Information not available 07/30/2024 Are You Sexually Active? Yes Information not available 07/30/2024 At What Age Did You Start Smoking Tobacco? 18 [email or web address] Information not available 07/30/2024 How Much Tobacco Do You Smoke? 0.5 PPD [email or web address] Information not available 07/30/2024 Has Tobacco Cessation Counseling Been Provided? Yes [email or web address] Information not available 07/30/2024 On What Date Was Tobacco Cessation Counseling Provided? 07/30/2024 [email or web address] Information not available 07/30/2024 Sex: Female Functional Status Question Answer Note LastModified by Organizat ion Details LastModified Time Do you use any illicit or recreational drugs? No Sober 2yrs, DOC Heroin attends [facility] for Methadone [email or web address] Information not available 07/30/2024 What is your level of alcohol consumption? None [email or web address] Information not available 07/30/2024 Mental Status None recorded. Family History Nothing Reported. Medical History No medical history recorded. Gynecological History Statement/Question Response LMP Approximate Date of LMP 07/25/2024 Obstetrics History GPAL:G 0 P 0 0 0 0 Past Encounters Encounter ID Performer Location Encounter Start Date Encounter Closed Date Diagnosis/Indication Diagnosis SNOMED-CT Code Diagnosis ICD10 Code Diagnosis Note [id number] Adán Redding PA-C [address] [address] 09/13/2024 07:58:47 09/13/2024 09:14:52 Chronic obstructive pulmonary disease 12865715 J44.9 obtain spirometry , trial different maintenanc e inhaler Bipolar disorder 0933931 4 F31.9 previously diagnosed Screening for disorder 588470440 Z13.29 Z13.0 Z13.228 Peripheral edema 3326033 00 R60.0 Check labwork, further diagnositi c decision making pending results. Fatigue 21928752 R53.83 [id number] Adán Redding PA-C [facility] [address] [place] [address] 09/26/2024 08:39:49 09/26/2024 10:21:52 Chronic obstructive pulmonary disease 01283971 J44.9 obtain spirometry , trial different maintenanc e inhaler Dyspnea 003698383 R06.00 [id number] Adán Redding PA-C [address] [address] 10/04/2024 07:56:28 10/04/2024 08:48:46 Chronic obstructive pulmonary disease 55152648 J44.9 spirometry suggestive of asthma Reactive a irway disease 3588759377 06 J45.909 Spirometry : The patient has an FEV1/FVC ratio of 81%, a FVC of 3.0 which is 86% of predicted, FEV1 of 2.43 which was 85% of predicted which is consistent with normal spirometry however there is an bronchodil ator response involving the small airways consistent with reactive airways disease or asthma in remission. Consider trial of bronchodil ators --de clines pulmonolog ist consult, happy with current regimen Anxiety 33434936 F41.9 Cautioned side effect of sedation; do not take with other sedatives. Do not drink alcohol with medication . Do not operate machinery or drive after taking medication . Chest discomfort 2171702 09 R07.89 --possible anxiety component, asthmatic- -EKG NSR without ST changesIf patient should get worse call clinic or go to emergency room. Discussed expected course and cautioned signs and sxs to seek further treatment. Health Concerns Section Related Observation LastModified by Organization Detai ls LastModified Time None Recorded Concern Status LastModified by Organization Details LastModified Time None Recorded Payers Encounter Date Sequence Insurance Name Policy Number Policy Foster Covered Member ID Foster Member ID Guarantor Name 10/04/2024 1 [employer] (MEDICAID REPLACEMENT - HMO) Huang Lopez [id number] Huang keating Notes Date Note Type Note Provider Name and Address Organization Details Recorded Time 10/04/2024 text/html Patient presents to office for follow up. Patient informed of spirometry results this visit, good understanding verbalized. Patient to discuss COPD vs asthma with provider.Taking 145mg methadone daily.spirometry: pls let pt know that spirometry reports shows more evidence of reactive airway disease or asthma as opposed to COPD, can continue inhalers if finding helpful and discuss further at FU, it would be best if we are able to quit smoking, will help reduce exacerbations and symptoms.hydroxyzin e ineffective, was beneficial originally, has been taking two tablets PRN.symbicort helpful, may not be taking BID every day.Reports mostly right sided chest discomfort, seemingly random, can be stabbing and 8/10 pain, no worsened with activity, can cause increased SOA, no diaphoresis, presyncope/syncope. No other symptoms or concerns reported. LN:Patient presents to office for follow up. Patient continues to report difficulty sleeping at night, reports hydroxyzine has not been effective. Patient states feels fatigued during the day, naps frequently. Reports frequent snoring and witnessed apneic episodes. 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 reports infrequent swelling at the ankles that is worse at the end of the day. has spirometry scheduled. No other symptoms or concerns reported. Adán Redding PA-C [address], [place], [address], [place] - [facility] 10/04/2024 08:50:01 OBGyn Episode No OBEpisode recorded.
--- OUTSIDE RECORDS SUMMARY | 2024-11-15 15:59 | XMS_ITS | Data Portability ---
Author Organization [facility] Address [address] [place] [address] Assessment Encounter Date Assessment Date Assessment LastModified by Organization Details LastModified Time 09/13/2024 09/13/2024 psych referral - number riding coach number Not available 10/01/2024 07:54:44 10/04/2024 10/04/2024 recheck labs 3months [email or web address] Not available 10/04/2024 08:34:09 Plan of Treatment Reminders Order Date Submit Date Provider Last Modified By Organization Details Last Modified Time Details Appointments Establish ed Patient 20 2024 08:00A Isabelle Redding PA-C Not available Not available Not available Lab HbA1c (hemoglob in A1c), blood 2024 025 [facility], [address], [address], [place], [address], 09/14/2024 08:24:33 vitamin D, 25-hydrox y, total, serum 2024 025 GAMAL [facility], [address], [address], [place], [address], 09/14/2024 08:24:34 CMP, serum or plasma 2024 025 GAMAL [facility], [address], [place] [address], [place], [address], 09/14/2024 08:24:32 CBC w/ auto diff 2024 025 GAMAL [facility], [address], [place] [address], [place], [address], 09/14/2024 08:24:32 TSH + free T4, serum 2024 025 GAMAL [facility], [address], [place] [address], [place], [address], 09/14/2024 08:24:31 magnesium , serum or plasma 2024 025 GAMAL [facility], [address], [place] [address], [place], [address], 09/14/2024 08:24:34 cobalamin and folate panel, serum 2024 025 GAMAL [facility], [address], [place] [address], [place], [address], 09/14/2024 08:24:33 iron + total iron-bind ing capacity (TIBC), serum 2024 025 GAMAL [facility], [address], [place] [address], [place], [address], 09/14/2024 08:24:32 Referral cardiolog ist referral 2024 025 boris [facility], [address], [place], [address], 11/13/2024 16:50:09 mental health counselor referral 2024 025 [email or web address] Not available 09/10/2024 16:04:36 psychiatr ist referral 2024 025 Not available 09/10/2024 16:04:36 nutrition ist/dieti gavin referral 2024 025 barby [facility], [address] [place] [address] , [place], [address], 10/25/2024 22:23:02 community health worker referral 2024 025 [email or web address] Not available 08/13/2024 15:30:52 Procedures None recorded. Surgeries None recorded. Imaging electroca rdiogram 2024 025 [facility], [address], [place], [address], 10/04/2024 08:57:48 home sleep study 2024 025 [place] [address] 2 [facility], [address] [facility] [address], [place], [address], 11/14/2024 14:32:04 spirometr y 2024 025 [facility], [address] [place] [address] Rd[address] [place], [address], 09/26/2024 10:19:49 Medication Orders hydroxyzi ne HCl 25 mg tablet 2024 025 [facility], [address] [place] [address], [address], 10/04/2024 08:34:42 Symbicort 160 mcg-4.5 mcg/actua tion HFA aerosol inhaler [address], [address], 10/04/2024 08:34:42 albuterol sulfate 2.5 mg/3 mL (0.083 %) solution for nebulizat ion [address], [address], 09/13/2024 08:59:24 loratadin e 10 mg tablet [address], [place], [address], 08/20/2024 09:07:02 hydroxyzi ne HCl 25 mg tablet [address], [address], 08/20/2024 09:05:29 Combivent Respimat 20 mcg-100 mcg/actua tion solution for inhalatio n [address], [address], 08/20/2024 09:06:38 Symbicort 160 mcg-4.5 mcg/actua tion HFA aerosol inhaler [address], [address], 08/20/2024 10:11:21 nicotine 14 mg/24 hr daily transderm al patch [address], [address], 07/30/2024 10:37:06 nicotine (polacril ex) 4 mg buccal lozenge [address], [address], 07/30/2024 10:37:07 nicotine 7 mg/24 hr daily transderm al patch [address], [address], 07/30/2024 10:37:06 Advair Diskus 250 mcg-50 mcg/dose powder for inhalatio n 2024 025 [place] [address], [place], [address], 07/30/2024 10:34:45 Patient TargetsNo targets recorded. Patient Instructions Encounter Date Encounter Id Patient Instructions Last Modified By Organization Details Last Modified Time 07/30/2024 [id number] Quitting Tobacco : Care Instructions [email or web address] Not available 07/30/2024 10:37:04 smoking cessatio n counseling, greater than 3 minutes up to 10 minutes* [email or web address] Not available 08/09/2024 16:37:34 medical record request* [email or web address] Not available 08/09/2024 16:03:43 body mass index: care instructions [email or web address] Not available 07/30/2024 10:31:26 learning about healthy weight [email or web address] Not available 07/30/2024 10:31:26 chronic obstructive pulmonary disease (COPD): care instructions [email or web address] Not available 07/30/2024 10:31:26 learning about copd and how to prevent lung infections [email or web address] Not available 07/30/2024 10:31:26 medical record request* - Please provide recent visit note(s) and any relevant results [email or web address] Not available 10/19/2024 11:17:31 All questions answered and pt/guardian satisfied with treatment plan. Call with changes RTC or ED if symptoms change or worsen Keep next interval checkup Cont. chronic meds as prescribed Chronic conditions are stable Discussed natural and expected course of this diagnosis and need to alert the office if symptoms do not follow expected course or if any worsens [email or web address] Not available 07/30/2024 10:37:27 08/20/2024 [id number] seasonal allergies: care instructions [email or web address] Not available 08/20/2024 09:07:01 bipolar disorder : care instructions [email or web address] Not available 08/20/2024 09:07:40 learning about mood disorders [email or web address] Not available 08/20/2024 09:07:40 When You Want to Lose Weight: Care Instructions [email or web address] Not available 08/20/2024 10:12:14 chronic obstructive pulmonary disease (COPD): care instructions [email or web address] Not available 08/20/2024 09:05:28 learning about copd and how to prevent lung infections [email or web address] Not available 08/20/2024 09:05:28 All questions answered and pt/guardian satisfied with treatment plan. Call with changes RTC or ED if symptoms change or worsen Keep next interval checkup Cont. chronic meds as prescribed Chronic conditions are stable Discussed natural and expected course of this diagnosis and need to alert the office if symptoms do not follow expected course or if any worsens [email or web address] Not available 08/20/2024 10:12:02 09/13/2024 [id number] bipolar disorder : care instructions [email or web address] Not available 09/13/2024 08:59:22 learning about mood disorders [email or web address] Not available 09/13/2024 08:59:22 chronic obstructive pulmonary disease (COPD): care instructions [email or web address] Not available 09/13/2024 08:59:22 learning about copd and how to prevent lung infections Not available 09/13/2024 08:59:22 All questions answered and pt/guardian satisfied with treatment plan. Call with changes RTC or ED if symptoms change or worsen Keep next interval checkup Cont. chronic meds as prescribed Chronic conditions are stable Discussed natural and expected course of this diagnosis and need to alert the office if symptoms do not follow expected course or if any worsens [email or web address] Not available 10/01/2024 07:54:50 09/26/2024 [id number] chronic obstructive pulmonary disease (COPD): care instructions [email or web address] Not available 09/26/2024 10:50:38 learning about copd and how to prevent lung infections Not available 09/26/2024 10:50:38 10/04/2024 [id number] chronic obstructive pulmonary disease (COPD): care instructions [email or web address] Not available 10/04/2024 08:34:40 learning about copd and how to prevent lung infections [email or web address] Not available 10/04/2024 08:34:41 All questions answered and pt/guardian satisfied with treatment plan. Call with changes RTC or ED if symptoms change or worsen Keep next interval checkup Cont. chronic meds as prescribed Chronic conditions are stable Discussed natural and expected course of this diagnosis and need to alert the office if symptoms do not follow expected course or if any worsens [email or web address] Not available 10/04/2024 08:36:39 Reason for Referral Health Service Worker/dietitian Refer ral for Body mass index 40+ - severely obese Referring Physician: Family Paty Yarbrough, Encounter Date: 07/30/2024 Community Health Worker Refe rral for Finding related to health insurance issues Referring Physician: Family Paty Yarbrough, Encounter Date: 07/30/2024 Mental Health Counselor Refe rral for Bipolar disorder Referring Physician: Family Paty Yarbrough, Encounter Date: 08/20/2024 Psychiatrist Referral for Bi polar disorder Referring Physician: Family Paty Yarbrough, Encounter Date: 08/20/2024 City Tax Auditor Referral for Ch est discomfort Referring Physician: Adán Redding [facility] Paty, Encounter Date: 10/04/2024 Results Created Date Observation Date Name Description Value Unit Range Abnormal Flag Note LastModifiedBy Organization Detail LastModifiedTime 09/14/1909/14/2024 TSH+F REE T4 TSH 2.150 uIU/m L 0.450- 4.500 normal Not Available [facility] ([facility]) [address] [place], [address], 09/14/2024 08:24:31 09/14/1909/14/2024 TSH+F REE T4 T4,free(dire ct) 1.01 NG/dL 0.82-1 .77 normal Not Available [facility] ([facility]) [address] [place], [address], 09/14/2024 08:24:31 09/14/1909/14/2024 CBC WITH DIFFE RENTI AL/PL ATELE T WBC 7.6 x10e3 /uL 3.4-10 .8 normal Not Available [facility] ([facility]) [address] [place], [address], 09/14/2024 08:24:31 09/14/19 25 09/14/2024 CBC WITH DIFFE RENTI AL/PL ATELE T RBC 4.31 x10e6 /uL 3.77-5 .28 normal Not Available [facility] ([facility]) [address] [place], [address], 09/14/2024 08:24:31 09/14/1909/14/2024 CBC WITH DIFFE RENTI AL/PL ATELE T hemoglobin 9.5 g/dL 11.1-1 5.9 below low normal Not Available [facility] ([facility]) [address] [place], [address], 09/14/2024 08:24:31 09/14/1909/14/2024 CBC WITH DIFFE RENTI AL/PL ATELE T hematocrit 32.1 % 34.0-4 6.6 below low normal Not Available [facility] ([facility]) [address] [place], [address], 09/14/2024 08:24:31 09/14/1909/14/2024 CBC WITH DIFFE RENTI AL/PL ATELE T MCV 75 fL 79-97 below low normal Not Available [facility] ([facility]) [address] [place], [address], 09/14/2024 08:24:31 09/14/1909/14/2024 CBC WITH DIFFE RENTI AL/PL ATELE T MCH 22.0 pg 26.6-3 3.0 below low normal Not Available [facility] ([facility]) [address] [place], [address], 09/14/2024 08:24:31 09/14/1909/14/2024 CBC WITH DIFFE RENTI AL/PL ATELE T MCHC 29.6 g/dL 31.5-3 5.7 below low normal Not Available [facility] ([facility]) [address] [place], [address], 09/14/2024 08:24:31 09/14/1909/14/2024 CBC WITH DIFFE RENTI AL/PL ATELE T RDW 18.1 % 11.7-1 5.4 above high normal Not Available [facility] ([facility]) [address] [place], [address], 09/14/2024 08:24:31 09/14/1909/14/2024 CBC WITH DIFFE RENTI AL/PL ATELE T platelets 251 x10e3 /uL 150-45 0 normal Not Available [facility] ([facility]) [address] [facility], [place], [address], 09/14/2024 08:24:31 09/14/1909/14/2024 CBC WITH DIFFE RENTI AL/PL ATELE T neutrophils 61 % not estab. normal Not Available [facility] ([facility]) [address] [facility], [place], [address], 09/14/2024 08:24:31 09/14/1909/14/2024 CBC WITH DIFFE RENTI AL/PL ATELE T lymphs 31 % not estab. normal Not Available [facility] ([facility]) [address] [place], [address], 09/14/2024 08:24:31 09/14/1909/14/2024 CBC WITH DIFFE RENTI AL/PL ATELE T monocytes 7 % not estab. normal Not Available [facility] ([facility]) [address] [facility], [place], [address], 09/14/2024 08:24:31 09/14/1909/14/2024 CBC WITH DIFFE RENTI AL/PL ATELE T eos 1 % not estab. normal Not Available [facility] ([facility]) [address] [place], [address], 09/14/2024 08:24:31 09/14/1909/14/2024 CBC WITH DIFFE RENTI AL/PL ATELE T basos 0 % not estab. normal Not Available [facility] ([facility]) [address] [facility], [place], [address], 09/14/2024 08:24:31 09/14/1909/14/2024 CBC WITH DIFFE RENTI AL/PL ATELE T immature cells SAND SIFTER Not Available [facility] ([facility]) [address] [facility], [place], [address], 09/14/2024 08:24:31 09/14/1909/14/2024 CBC WITH DIFFE RENTI AL/PL ATELE T neutrophils (absolute) 4.6 x10e3 /uL 1.4-7. 0 normal Not Available [facility] ([facility]) [address] [facility], [place], [address], 09/14/2024 08:24:31 09/14/19 25 09/14/2024 CBC WITH DIFFE RENTI AL/PL ATELE T lymphs (absolute) 2.4 x10e3 /uL 0.7-3. 1 normal Not Available [facility] ([facility]) [address] [place], [address], 09/14/2024 08:24:31 09/14/1909/14/2024 CBC WITH DIFFE RENTI AL/PL ATELE T monocytes(ab solute) 0.5 x10e3 /uL 0.1-0. 9 normal Not Available [facility] ([facility]) [address] [place], [address], 09/14/2024 08:24:31 09/14/19 25 09/14/2024 CBC WITH DIFFE RENTI AL/PL ATELE T eos (absolute) 0.1 x10e3 /uL 0.0-0. 4 normal Not Available [facility] ([facility]) [address] [place], [address], 09/14/2024 08:24:31 09/14/19 25 09/14/2024 CBC WITH DIFFE RENTI AL/PL ATELE T baso (absolute) 0.0 x10e3 /uL 0.0-0. 2 normal Not Available [facility] ([facility]) [address] [facility], [place], [address], 09/14/2024 08:24:31 09/14/19 25 09/14/2024 CBC WITH DIFFE RENTI AL/PL ATELE T immature granulocytes 0 % not estab. Not Available [facility] ([facility]) [address] [facility], [place], [address], 09/14/2024 08:24:31 09/14/19 25 09/14/2024 CBC WITH DIFFE RENTI AL/PL ATELE T immature grans (abs) 0.0 x10e3 /uL 0.0-0. 1 Not Available [facility] ([facility]) [address] [facility], [place], [address], 09/14/2024 08:24:31 09/14/19 25 09/14/2024 CBC WITH DIFFE RENTI AL/PL ATELE T NRBC SAND SIFTER Not Available [facility] ([facility]) [address] [facility], [place], [address], 09/14/2024 08:24:31 09/14/19 25 09/14/2024 CBC WITH DIFFE RENTI AL/PL ATELE T hematology comments: SAND SIFTER Not Available [facility] ([facility]) [address] [place], [address], 09/14/2024 08:24:31 09/14/19 25 09/14/2024 COMP. METAB OLIC PANEL (14) glucose 81 mg/dL 70-99 normal Not Available [facility] ([facility]) [address] [place], [address], 09/14/2024 08:24:32 09/14/19 25 09/14/2024 COMP. METAB OLIC PANEL (14) BUN 12 mg/dL 6-20 normal Not Available [facility] ([facility]) [address] [facility] [place], [address], 09/14/2024 08:24:32 09/14/19 25 09/14/2024 COMP. METAB OLIC PANEL (14) creatinine 0.71 mg/dL 0.57-1 .00 normal Not Available [facility] ([facility]) [address] [facility] [place], [address], 09/14/2024 08:24:32 09/14/19 25 09/14/2024 COMP. METAB OLIC PANEL (14) eGFR 111 mL/mi n/1.7 3 >59 normal Not Available [facility] ([facility]) [address] [facility] [place], [address], 09/14/2024 08:24:32 09/14/19 25 09/14/2024 COMP. METAB OLIC PANEL (14) BUN/creatini ne ratio 17 9-23 normal Not Available [facility] ([facility]) [address] [facility] [place], [address], 09/14/2024 08:24:32 09/14/19 25 09/14/2024 COMP. METAB OLIC PANEL (14) sodium 140 mmol/ L 134-14 4 normal Not Available [facility] ([facility]) [address] [facility] [place], [address], 09/14/2024 08:24:32 09/14/19 25 09/14/2024 COMP. METAB OLIC PANEL (14) potassium 4.4 mmol/ L 3.5-5. 2 normal Not Available [facility] ([facility]) [address] [facility] [place], [address], 09/14/2024 08:24:32 09/14/19 25 09/14/2024 COMP. METAB OLIC PANEL (14) chloride 103 mmol/ L 96-106 normal Not Available [facility] ([facility]) [address] [facility] [place], [address], 09/14/2024 08:24:32 09/14/19 25 09/14/2024 COMP. METAB OLIC PANEL (14) carbon dioxide, total 22 mmol/ L 20-29 normal Not Available [facility] ([facility]) [address] [facility] [place], [address], 09/14/2024 08:24:32 09/14/19 25 09/14/2024 COMP. METAB OLIC PANEL (14) calcium 8.7 mg/dL 8.7-10 .2 normal Not Available [facility] ([facility]) [address] [facility] [place], [address], 09/14/2024 08:24:32 09/14/19 25 09/14/2024 COMP. METAB OLIC PANEL (14) protein, total 6.4 g/dL 6.0-8. 5 normal Not Available [facility] ([facility]) [address] [facility] [place], [address], 09/14/2024 08:24:32 09/14/19 25 09/14/2024 COMP. METAB OLIC PANEL (14) albumin 3.5 g/dL 3.9-4. 9 below low normal Not Available [facility] ([facility]) [address] [facility] [place], [address], 09/14/2024 08:24:32 09/14/19 25 09/14/2024 COMP. METAB OLIC PANEL (14) globulin, total 2.9 g/dL 1.5-4. 5 Not Available [facility] ([facility]) [address] [facility] [place], [address], 09/14/2024 08:24:32 09/14/19 25 09/14/2024 COMP. METAB OLIC PANEL (14) bilirubin, total <0.2 mg/dL 0.0-1. 2 Not Available [facility] ([facility]) [address] [facility] [place], [address], 09/14/2024 08:24:32 09/14/19 25 09/14/2024 COMP. METAB OLIC PANEL (14) alkaline phosphatase 71 IU/L 44-121 normal Not Available [facility] ([facility]) [address] [place], [address], 09/14/2024 08:24:32 09/14/19 25 09/14/2024 COMP. METAB OLIC PANEL (14) AST (SGOT) 10 IU/L 0-40 normal Not Available [facility] ([facility]) [address] [place], [address], 09/14/2024 08:24:32 09/14/19 25 09/14/2024 COMP. METAB OLIC PANEL (14) ALT (SGPT) 21 IU/L 0-32 normal Not Available [facility] ([facility]) [address] [place], [address], 09/14/2024 08:24:32 09/14/19 25 09/14/2024 IRON AND TIBC iron bind.cap.(TI BC) 420 ug/dL 250-45 0 normal Not Available [facility] ([facility]) [address] [place], [address], 09/14/2024 08:24:32 09/14/19 25 09/14/2024 IRON AND TIBC UIBC 388 ug/dL 131-42 5 normal Not Available [facility] ([facility]) [address] [place], [address], 09/14/2024 08:24:32 09/14/19 25 09/14/2024 IRON AND TIBC iron 32 ug/dL 27-159 normal Not Available [facility] ([facility]) [address] [place], [address], 09/14/2024 08:24:32 09/14/19 25 09/14/2024 IRON AND TIBC iron saturation 8 % 15-55 alert low Not Available [facility] ([facility]) [address] [facility], [place], [address], 09/14/2024 08:24:32 09/14/1909/14/2024 VITAM IN B12 AND FOLAT E vitamin B12 527 pg/mL 232-12 45 normal Not Available [facility] ([facility]) [address] [facility], [place], [address], 09/14/2024 08:24:33 09/14/1909/14/2024 VITAM IN B12 AND FOLAT E folate (folic acid), serum 12.9 NG/mL >3.0 normal A serum folat e belinda ntrat ion of less than 3.1 ng/mL is consi dered to repre sent clini james defic iency . Not Available [facility] ([facility]) [address] [facility], [place], [address], 09/14/2024 08:24:33 09/14/1909/14/2024 HEMOG LOBIN A1C hemoglobin A1C 5.5 % 4.8-5. 6 normal Predi abete s: 5.7 - 6.4 Diabe celia: >6.4 Glyce nirmala contr ol for adult s with diabe celia: <7.0 Not Available [facility] ([facility]) [address] [place], [address], 09/14/2024 08:24:33 09/14/1909/14/2024 VITAM IN D, 25-HY DROXY vitamin D, 25-hydroxy 22.9 NG/mL 30.0-1 00.0 below low normal Vitam in D defic iency has been defin ed by the Insti tute of Medic ine and an Endoc rine Socie ty pract ice guide line as a level of serum 25-OH vitam in D less than 20 ng/mL (1,2) . The Endoc rine Socie ty went on to furth er defin e vitam in D insuf ficie ncy as a level betwe en 21 and 29 ng/mL (2). 1. IOM (Inst itute of Medic ine). 2010. Dieta ry refer ence intdean es for calci um and D. Soto connolly [place]: [employer] . 2. Luisa underwood [place], Arabella manriquez [place], Palma off-F errnatalia i [place], et al. Evalu ation , treat ment, and preve ntion of vitam in D defic iency : an Endoc rine Socie ty clini james pract ice guide line. JCEM. 2010; 96(7) :1911 -30. Not Available [facility] ([facility]) [address] [facility], [place], [address], 09/14/2024 08:24:34 09/14/19 25 09/14/2024 MAGNE SIUM magnesium 2.0 mg/dL 1.6-2. 3 normal Not Available [facility] ([facility]) [address] [facility], [place], [address], 09/14/2024 08:24:34 09/27/19 25 09/26/2024 fannie metry No observ ation record ed. [email or web address] [facility] [address] [place], [address], 10/04/2024 08:01:25 10/05/19 25 10/04/2024 elect rocar diogr am No observ ation record ed. [address], [address], 10/04/2024 08:59:25 10/05/19 elect rocar diogr am No observ ation record ed. [address], [address], 10/04/2024 08:58:04 Result Notes None recorded. Problems Name Problem SNOMED Code Status Onset Date Resolution Date Notes Provider Name and Address Organization Details Recorded Time Chronic obstructive pulmonary disease 76878045 Active 2024 Adán Redding PA-C [address], [place], [address], [place] - [facility] 5 10:29:59 Morbid obesity 854848435 Active 2024 Adán Redding PA-C [address], [place], [address], [place] [facility] 5 10:30:24 Nicotine dependence 50407479 Active 2024 Adán Redding PA-C [address], [place], [address], [place] [facility] 5 10:34:44 Acute exacerbatio n of chronic obstructive pulmonary disease 339532607 Active 2024 Adán Redding PA-C [address], [place], [address], [place] [facility] 5 10:37:12 History of drug abuse 290719057 Active 2024 Adán Redding PA-C [address], [place], [address], [place] [facility] 5 10:37:34 Anxiety 91301327 Active 2024 Adán Redding PA-C [address], [place], [address], [place] [facility] 5 08:46:13 Seasonal allergy 573016615 Active 2024 Adán Redding PA-C [address], [place], [address], [place] [facility] 5 09:06:46 Bipolar disorder 12823488 Active 2024 Adán Redding PA-C [address], [place], [address], [place] [facility] 5 09:07:21 Peripheral edema 383421884 Active 2024 Adán Redding PA-C [address], [place], [address], [place] [facility] 5 08:59:40 Fatigue 90025237 Active 2024 Adán Redding PA-C [address], [place], [address], [place] - [facility] 5 09:03:41 Iron deficiency anemia 18700494 Active 2024 Adán Redding PA-C [address], [place], [address], [place] - [facility] 5 07:44:37 Reactive airway disease 619570846813 Active 2024 Adán Redding PA-C [address], [place], [address], [place] - [facility] 5 08:09:27 Chest discomfort 143604983 Active 2024 Adán Redding PA-C [address], [place], [address], [facility] - [facility] 5 08:32:34 Nausea 668114867 Active 2024 Adán Redding PA-C [address], [place], [address], [facility] - [facility] 5 08:57:46 Problem Notes None [...] Name and Address Organization Details Recorded Time 461062 Product containin g penicilli n (product) medicatio n Not available Not available Not available 07/30/2024 87459 8001 SNOMED Danni Goldstein null, [place] - [facility] 5 09:40:55 121916 lidocaine medicatio n Not available Not available Not available 07/30/2024 6387 RxNorm Danni [place]stein [place] - [facility] 09:41:05 290176 benzocain e medicatio n Not available Not available Not available 07/30/2024 1399 RxNorm Danni Goldstein [place], [place] - [facility] 5 09:41:16 Medications Name Sig [...] Available Not Available Vitals Date Recorded Body weight Body mass index (BMI) Body height Heart rate Oxygen saturation Oxygen saturation in Arterial blood by Pulse oximetry Systolic And Diastolic Provider Name and Address Organization Details Last Updated DateTime 5 466397. 98 g 46.9 kg/m2 160.02 cm 72 /min 97 % 97 % 110/70 mm[Hg] Danni Goldstein [place] - [facility] 5 09:50:58 Date Recorded Body height Body mass index (BMI) Body weight Heart rate Oxygen saturation Oxygen saturation in Arterial blood by Pulse oximetry Systolic And Diastolic Provider Name and Address Organization Details Last Updated DateTime 5 160.02 cm 46.9 kg/m2 845195. 98 g 87 /min 98 % 98 % 118/78 mm[Hg] Danni Goldstein LYYN - [facility] 5 09:05:09 Date Recorded Body height Heart rate Oxygen saturation Oxygen saturation in Arterial blood by Pulse oximetry Systolic And Diastolic Provider Name and Address Organization Details Last Updated DateTime 5 160.02 cm 70 /min 97 % 97 % 110/70 mm[Hg] Danni Goldstein LYYN - [facility] 5 08:33:30 Date Recorded Body height Body mass index (BMI) Body weight Body temperature Provider Name and Address Organization Details Last Updated DateTime 09/26/2024 160.02 cm 46.9 kg/m2 187498.98 g 97.9 [degF] Maria Luisa Jareth [place] - [facility] 09/26/2024 08:53:58 Date Recorded Body height Body mass index (BMI) Body weight Heart rate Oxygen saturation Oxygen saturation in Arterial blood by Pulse oximetry Systolic And Diastolic Provider Name and Address Organization Details Last Updated DateTime 5 160.02 cm 46.2 kg/m2 231062. 61 g 84 /min 97 % 97 % 118/74 mm[Hg] Danni Goldstein LYYN - [facility] 5 08:03:21 Social History Question Answer Notes LastModified by Organizat ion Details LastModified Time Tobacco Smoking Status Current Every Day Smoker JOSE Nagy - [facility] 07/30/2024 09:45:17 What Was The Date Of Your Most Recent Tobacco Screening? 07/30/2024 [email or web address] Information not available 07/30/2024 How Many Children Do You Have? 5 [email or web address] Information not available 07/30/2024 What Is Your Relationship Status? [email or web address] Information not available 07/30/2024 Are You Sexually Active? Yes [email or web address] Information not available 07/30/2024 At What Age Did You Start Smoking Tobacco? 18 [email or web address] Information not available 07/30/2024 How Much Tobacco Do You Smoke? 0.5 PPD [email or web address] Information not available 07/30/2024 Has Tobacco Cessation Counseling Been Provided? Yes [email or web address] Information not available 07/30/2024 On What Date Was Tobacco Cessation Counseling Provided? 07/30/2024 [email or web address] Information not available 07/30/2024 Sex: Female Functional Status Question Answer Note LastModified by Organizat ion Details LastModified Time Do you use any illicit or recreational drugs? No Sober 2yrs, DOC Heroin attends [facility] for Methadone [email or web address] Information not available 07/30/2024 What is your level of alcohol consumption? None Information not available 07/30/2024 Mental Status None recorded. Family History Nothing Reported. Medical History No medical history recorded. Gynecological History Statement/Question Response LMP Approximate Date of LMP 07/25/2024 Obstetrics History GPAL:G 0 P 0 0 0 0 Past Encounters Encounter ID Performer Location Encounter Start Date Encounter Closed Date Diagnosis/Indication Diagnosis SNOMED-CT Code Diagnosis ICD10 Code Diagnosis Note [id number] Adán Redding PA-C [address] [address] 07/30/2024 08:25:16 07/30/2024 10:48:16 Chronic obstructive pulmonary disease 85853732 J44.9 [facility] 002441293 Z76.89 Finding re lated to health insurance issues 333990283 Z59.9 Body mass index 40+ - severely obese 688318775 Z68.42 Morbid obesity 253163338 E66.01 Patient ne w to provider [id number] 53753 Z76.89 Nicotine dependence 5629 4008 F17.200 Acute exac erbation of chronic obstructive pulmonary disease 954125041 J44.1 improving, finish RX from [facility] with patient. Advised to drink plenty of fluids and fluids containing electrolyt es. Try to get plenty of rest. Can take OTC pain medication such as tylenol or ibuprofen (dosed based on weight for pediatric patients) as needed to relieve fever, headache, or body aches. If patient should get worse call clinic or go to emergency room. Discussed expected course and cautioned signs and sxs to seek further treatment. History of drug abuse 37 8229759 F19.11 DOC Heroin, 2 yrs sober currently [id number] Adán Redding PA-C [place] [id number] 1 08/20/2024 08:26:37 08/20/2024 09:43:01 Chronic obstructive pulmonary disease 80413305 J44.9 obtain spirometry , trial different maintenanc e inhaler Anxiety 79552338 F41.9 Cautioned side effect of sedation; do not take with other sedatives. Do not drink alcohol with medication . Do not operate machinery or drive after taking medication . Seasonal allergy 0122530 04 J30.2 Bipolar disorder 7278297 4 F31.9 previously diagnosed Morbid obesity 316090811 E66.[address]- has not scheduled, reports will call to schedule [id number] Adán Redding PA-C [address] [address] 09/13/2024 07:58:47 09/13/2024 09:14:52 Chronic obstructive pulmonary disease 63811383 J44.9 obtain spirometry , trial different maintenanc e inhaler Bipolar disorder 5950491 4 F31.9 previously diagnosed Screening for disorder 262871879 Z13.29 Z13.0 Z13.228 Peripheral edema 1991999 00 R60.0 Check labwork, further diagnositi c decision making pending results. Fatigue 09111384 R53.83 [id number] Adán Redding PA-C [facility] [address] [place] [id number] 09/26/2024 08:39:49 09/26/2024 10:21:52 Chronic obstructive pulmonary disease 45001492 J44.9 obtain spirometry , trial different maintenanc e inhaler Dyspnea 977108090 R06.00 [id number] Adán Redding PA-C [facility] [address] [facility] [place] [id number] 10/04/2024 07:56:28 10/04/2024 08:48:46 Chronic obstructive pulmonary disease 69459930 J44.9 spirometry suggestive of asthma Reactive a irway disease 7619188043 06 J45.909 Spirometry : The patient has [...] ist consult, happy with current regimen Anxiety 68800411 F41.9 Cautioned side effect of sedation; do not take with other sedatives. Do not drink alcohol with medication . Do not operate machinery or drive after taking medication . Chest discomfort 5405729 09 R07.89 --possible anxiety component, asthmatic- -EKG NSR without ST changesIf patient should get worse call clinic or go to emergency room. Discussed expected course and cautioned signs and sxs to seek further treatment. Health Concerns Section Related Observation LastModified by Organization Detai ls LastModified Time None Recorded Concern Status LastModified by Organization Details LastModified Time None Recorded Advance Directives Directive None Recorded Payers Insurance Date Sequence Insurance Name Policy Number Policy Foster Covered Member ID Foster Member ID Guarantor Name 11/02/2024 1 [employer] (MEDICAID REPLACEMENT - HMO) Huang Tran [id number] Huang keating 11/02/2024 [place] [id number] [place] BILLING (MEDICAID) Huang Tran [id number] Huang Stephenson [email or web address] Notes Date Note Type Note Provider Name and Address Organization Details Recorded Time 07/30/2024 text/html Patient presents to office as new patient. Patient was seen at [facility] related to COPD exacerbation. Patient states abx and steroids prescribed have been effective. Patient is currently prescribed methadone from [facility], has allergy to all numbing medications. Patient would like to discuss weight loss, states has gained approx 100lbs over the past two years. Has tried diet, prior PCP was discussing surgical options. Prior drug of choice included heroinsober for 2 years currently smoking, was 3ppddown 1/2 ppd Combivent Respimat short-acting bronchodilators ipratropium (an anticholinergic) and albuterol (a beta2-adrenergic agonist)1 puff inhaled qid] Max: 6 puffs/24h [place] [facility] clinic prior PCP No other symptoms or concerns reported. Adán Redding PA-C [facility] [address], [place], [address], [place] - [facility] 07/30/2024 10:41:46 08/20/2024 text/html Patient presents to office for follow up. Patient reports increased anxiety this visit. Patient states has not been seen by mental health therapist, has not had medication. Patient reports has not been sleeping well at night, averaging less than one hour per night. Patient states sleeps 3-4 hours during the day.has not been able to sleep due to heat, stress and anxiety making it difficult to fall asleep. Was happy with prior medications for mood RX by [facility] but does not remember what she was takingDenies any current illicit substance use. reports 2yrs sober. Occasional CBD oil use.Feels like inhaled medications could be stronger, still becoming short of breath and coughing.No other symptoms or concerns reported. LN:Patient presents to office as new patient. Patient was seen at [facility] related to COPD exacerbation. Patient states abx and steroids prescribed have been effective. Patient is currently prescribed methadone from [facility], has allergy to all numbing medications. Patient would like to discuss weight loss, states has gained approx 100lbs over the past two years. Has tried diet, prior PCP was discussing surgical options. Prior drug of choice included heroinsober for 2 years currently smoking, was 3ppddown 1/2 ppd Combivent Respimat short-acting bronchodilators ipratropium (an anticholinergic) and albuterol (a beta2-adrenergic agonist)1 puff inhaled qid] Max: 6 puffs/24h [place] [facility] clinic prior PCP No other symptoms or concerns reported. Adán Redding PA-C [address], [place], [address], [facility] - [facility] 08/20/2024 10:12:25 09/13/2024 text/html Patient presents to office for follow up. Patient continues to report difficulty sleeping at night, reports hydroxyzine has not been effective. Patient states feels fatigued during the day, naps frequently. Reports frequent snoring and witnessed apneic episodes. Has not scheduled with psych or riding coach. reports infrequent swelling at the ankles that is worse at the end of the day. has spirometry scheduled. No other symptoms or concerns reported. Adán Redding PA-C [address], [place], [address], [facility] - [facility] 10/01/2024 07:57:20 09/26/2024 text/html Spirometry Adán Redding PA-C [address], [place], [address], [facility] - [facility] 09/30/2024 20:25:42 10/04/2024 text/html Patient presents to office for [...] quit smoking, will help reduce exacerbations and symptoms.hydroxyzine ineffective, was beneficial originally, has been taking two tablets PRN.symbicort helpful, may not be taking BID every day.Reports mostly right sided chest discomfort, seemingly random, can be stabbing and 8/10 pain, no worsened with activity, can cause increased SOA, no diaphoresis, presyncope/syncope.No other symptoms or concerns reported. LN:Patient presents to office for follow up. Patient continues to report difficulty sleeping at night, reports hydroxyzine has not been effective. Patient states feels fatigued during the day, naps frequently. Reports frequent snoring and witnessed apneic episodes. Has not scheduled with psych or riding coach. reports infrequent swelling at the ankles that is worse at the end of the day. has spirometry scheduled. No other symptoms or concerns reported. Adán Redding PA-C [facility] [address], [place], [address], [facility] - [facility] 10/04/2024 08:50:01 OBGyn Episode No OBEpisode recorded.
--- NOTE | 2024-11-15 16:09 | ED_ITS ---
<Statement entered by Stephanie Villegas DO - 11/15/24 20:04> I was consulted by the GEOVANNA, and we discussed the complexity of the problems being addressed. I approved the treatment and management plan for this patient's care in the emergency department, thus performing a substantive portion of the medical decision making. Stephanie Villegas DO Discharge Plan Disposition Patient Disposition: Home, Self-Care Prescriptions Prescriptions: New clindamycin HCl [Cleocin HCl] 150 mg capsule 150 mg PO Q8H 10 Days Qty: 30 0RF ondansetron 4 mg tablet,disintegrating 4 mg PO TID PRN (Reason: nausea and vomiting) 5 Days Qty: 30 0RF No Action methadone 5 mg Tablet 145 mg PO DAILY prednisone 20 mg tablet 40 mg PO DAILY 5 Days Qty: 10 0RF doxycycline monohydrate 100 mg capsule 100 mg PO BID 5 Days Qty: 10 0RF albuterol-budesonide 90-80 mcg/actuation HFA aerosol inhaler 2 inh inhalation DAILY PRN (Reason: shortness of breath) Qty: 10.7 0RF Referrals Follow up/Referrals: Provider,Referral, MD [Primary Care Provider, Medical] - See instructions Activity Restrictions/Add. Instructions Additional Instructions/Restrictions: Take meds as directed. Please call dentist or oral surgeon ANNIA. Clinical Impressions Clinical Impression: Dental caries, Dental abscess Instructions Patient Instructions: DI for Tooth Abscess, DI for Dental Pain Print Language Print Language: Tajik Discharge ED Provider: Stephanie Villegas General Adult HPI General Chief complaint: Dental/Oral Stated complaint: Possible infection on left eye from [facility] Time Seen by Provider: 11/15/24 15:49 Mode of Arrival: Ambulatory Source of Information: Patient Description of Symptoms (Recalled from ER Triage Doc. by RN): Pt presents for evaluation of facial swelling and dental infection History of Present Illness HPI narrative: 39-year-old female presents to the ED today for complaint of left sided facial swelling due to her dental infection. She has poor dentition. Most of her teeth are rotting. She states that she is allergic to all the medications that you used to know the teeth. She says she has had trouble having somebody put her to sleep to fix her teeth. She has had some nausea and vomiting with what she feels like her fever hurts as well. No other symptoms. Related Data Home Medications ?Medication ?Instructions ?Recorded ?Confirmed methadone 5 mg tablet 145 mg PO DAILY 07/27/24 Previous Rx's ?Medication ?Instructions ?Recorded albuterol 90 mcg-budesonide 80 2 inh inhalation DAILY PRN 07/27/24 mcg/actuation HFA aerosol inhaler shortness of breath #10.7 grams doxycycline monohydrate 100 mg 100 mg PO BID 5 days #1 0 caps 07/27/24 capsule prednisone 20 mg tablet 40 mg (2 x 20 mg) PO DAILY 5 days 07/27/24 #10 tabs clindamycin HCl 150 mg capsule 150 mg PO Q8H 10 days # 30 caps 11/15/24 (Cleocin HCl) ondansetron 4 mg disintegrating 4 mg PO TID PRN nausea and 11/15/24 tablet vomiting 5 days #30 tabs Allergies Allergy/AdvReac Type Severity Reaction Status Date / Time benzocaine (From Cetacaine) Allergy Severe Anaphylaxis Verified 07/27/24 08:20 butamben (From Cetacaine) Allergy Severe Anaphylaxis Verified 07/27/24 08:20 lidocaine Allergy Severe Anaphylaxis Verified 07/27/24 08:20 Penicillins Allergy Severe Anaphylaxis Verified 07/27/24 08:20 shellfish derived Allergy Severe Anaphylaxis Verified 07/27/24 08:20 tetracaine (From Cetacaine) Allergy Severe Anaphylaxis Verified 07/27/24 08:20 [facility] Disclaimer: The information contained in this section may have been updated after the patient was seen, as this information can be updated by other users. Medical History (Updated 11/15/24 @ 16:18 by Anh Macias (ED), [employer]) Hx of drug abuse COPD (chronic obstructive pulmonary disease) Asthma Surgical History (Updated 07/27/24 @ 08:19 by Therese Whiting RN) Hx of cholecystectomy Hx of oral surgery Hx of dilation and curettage Hx of section Hx of tubal ligation Social History (Updated 11/19/22 @ 20:20 by Tolu Lopez MD) Smoking Status: Current every day smoker alcohol intake: former current occupational status: unemployed Travel in the last 8 weeks?: None Have you lived/traveled outside [place] in past 30 days?: No Contact w/someone who lives/traveled outside US past 30 days?: No Exposure to someone with infectious disease in past 14 days?: No Do you have a fever (greater than 100.4 F or 38 C)?: No Have you tested positive for COVID-19?: No Exposed to someone with COVID-19 in past 14 days?: No Do you have a sore throat?: No Do you have a cough?: No Do you have any weakness?: No Do you have any diarrhea?: No Are you experiencing any unusual bleeding?: No Do you have any muscle aches/pain?: No Do you have any abdominal pain?: No Are you experiencing loss of taste or smell?: No ROS Obtained: Yes Systems reviewed as appropriate & no additional complaints except as documented Constitutional Constitutional: Reports as per HPI Physical Exam General General appearance: alert and in distress Head Head exam: normocephalic Eye Eye exam: Present PERRL and EOMI ENT ENT exam: Present normal oropharynx and mucous membranes moist Neck Neck exam: Present full ROM and trachea midline Respiratory Respiratory exam: Present normal lung sounds bilaterally Cardiovascular Cardiovascular exam: Present regular rate, normal rhythm, normal heart sounds, +S1 and +S2 Extremities Exam Extremities exam: Present full ROM and normal capillary refill Neurological Exam Neurological exam: Present alert, oriented X3 and normal gait Skin Skin exam: Present warm, dry and intact Medical Decision Making Medical Records Screening: Per USPSTF and CDC recommendations, given the prevalence of disease in our region, it is our hospital?s policy to screen for HIV and viral Hepatitis for all patients aged 18 and over and those with ongoing risk factors. Akin Inquiry Pt receiving controlled substance: No Vital Signs: 11/15/24 15:40 11/15/24 16:30 Temperature 97.9 F 98.3 F Temperature Source Oral Oral Pulse Rate 78 Pulse Rate [Right] 82 Respiratory Rate 18 18 Blood Pressure 131/79 Blood Pressure [Right Arm] 131/79 Blood Pressure Mean [Right Arm] 96 Blood Pressure Source Automatic Cuff Blood Pressure Source [Right Arm] Automatic Cuff Blood Pressure Position Sitting Blood Pressure Position [Right Arm] Sitting 02 Sat by Pulse Oximetry 98 Oxygen Delivery Method Room Air Room Air Orders (Tests/Meds): ED MEDICATIONS Discontinued Medications Generic Name Dose Route Start Last Admin Trade Name Freq PRN Reason Stop Dose Admin Clindamycin HCl 150 mg 11/15/24 16:10 11/15/24 16:27 Clindamycin 150mg Capsule PO 11/15/24 16:11 150 mg ONCE ONE Administration Ondansetron HCl 4 mg 11/15/24 16:10 11/15/24 16:27 Ondansetron 4mg Odt SL 11/15/24 16:11 4 mg ONCE ONE Administration Medical Decision Narrative: patient is a 39-year-old female presenting to the emergency department for evaluation of dental pain and swelling of the left side of her face. Patient is hemodynamically stable and nontoxic-appearing upon arrival, afebrile. Differential diagnosis includes dental abscess, dental pain. Initial inventions include antibiotics, nausea meds. Will give patient meds here and then prescribe for home. She is allergic to lidocaine and benzocaine so she is looking for a dental or oral surgeon that we will put her to sleep for dental work. Patient is safe for discharge home after meds being given. Critical Care Critical Care Time Critical Care Time: No
[2024-11-15] MEDS: ONDANSETRON 4MG ODT 4 MG SL (16:27)
[2024-11-15] MEDS: CLINDAMYCIN 150MG CAPSULE 150 MG PO (16:27)
[2024-11-15 16:30] VITALS: BP 131/79; PULSE 78; RESP 18; TEMP 36.8; O2SAT 98
== END 2024-11-15 16:30 | disposition home or self-care (01) ==
PROVIDERS: Emergency Provider Emergency Medicine
DX: K02.9 Dental caries, unspecified (principal); K04.7 Periapical abscess without sinus; F17.210 Nicotine dependence, cigarettes, uncomplicated
CPT/HCPCS: 99283; Q0162

== ENCOUNTER 2025-01-06 03:54 | Emergency (ER) | payer MEDICAID, SELFPAY ==
--- OUTSIDE RECORDS SUMMARY | 2024-05-19 07:45 | XMS_ITS ---
Author Organization [facility] Address [address] [place] [address] Care Team Providers Care Pourer Name Role Phone [facility] Unavailable [phone] REASON FOR VISIT Headache \/ Pain, Patient requesting service from [employer] competition Social History Tobacco Use: Social History Observation Description Date Details (start date - stop date) Former Smoker NA - NA Tobacco Control (Standard) Question Answer Notes Tobacco use: Former smoker Vital Signs Height 62 in 05/19/2024 Weight 229 lbs 05/19/2024 BMI 41.88 kg/m2 05/19/2024 Patient Reported Normal Bloo d PressurePatient Reported Normal Temperature Encounters Encounter Location Date Provider Diagnosis [facility] [address] [place] [address] 05/19/2024 [facility] Assessments Encounter Date Diagnosis (ICD Code) Assessment Notes Treatment Notes Treatment Clinical Notes Section Notes 05/19/2024 AI TRIAGE SUGGESTED ASSESSMENTS: G43.909 - Migraine, unspecified, not intractable, without status migrainosus G44.40 - Drug-induced headache, not elsewhere classified, not intractable T50.905? - Adverse effect of unspecified drugs, medicaments and biological substances, episode of care unspecified G44.009 - Cluster headache syndrome, unspecified, not intractable H40.9 - Unspecified glaucoma K85.90 - Acute pancreatitis without necrosis or infection, unspecified I62.9 - Nontraumatic intracranial hemorrhage, unspecified M31.6 - Other giant cell arteritis - -- --- AI TRIAGE CLINICAL REASONING: Based on the patient's history and symptoms, the differential diagnosis includes: 1. Migraine: Consistent with the patient's history and presentation of severe headache, worsened by movement and stress. 2. Acute Pancreatitis: Abdominal pain radiating to the back, worsened by movement, and associated with nausea and vomiting. 3. Acute Angle-Closure Glaucoma: Impaired vision and severe headache. 4. Cluster Headache: Severe headache with associated symptoms like vomiting and impaired vision. Further evaluation and diagnostic tests are recommended to confirm the diagnosis and provide appropriate treatment. Plan Of Treatment No Information Progress Notes * Julio MARTINEZ B:1985 (39 yo F)Acc No.[id number]:05/19/2024 IMPORT Patient: Huang KAM Provider: Shirley LEW HELIX :1985 A ge:38 Y S ex:Female Date:05/19/2024 Phone: Address:[facility] [address] [place], [id number] Subjective: * Chief Complaints: * 1 . Headache \/ Pain. 2. 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 * HPI: T [facility] Complaint History: 38 year-old female, not , presents with migraine for a duration of 3 days. Medical History: COPD, asthma and degeneration of intervertebral disc. Medications: Methadone HCl 145 mg liquid Once a day at 5 am. Risk Factors: No injury of head. * ROS: T he patient is also suffering from headache (worsened by movement, physical activity, awakening from sleep, pulsatile, throbbing, bilateral, pressure, squeezing, clinical course continual, progression getting worse, triggered by emotional stress, timing nocturnal, evening, on waking, sharp and stabbing), vomiting (duration 1 days and not bloody), impaired vision (duration 1 days), abdominal pain (severity severe, duration 3 days, location left upper quadrant, periumbilical region, right lower quadrant, right upper quadrant, epigastric region, cramping, sharp, onset sudden, radiating to back, chest, worsened by movement and walking), nausea (duration 1 days), chest pain (pressure and severity moderate) and car sickness. The patient denies the following: fever, loss of vision, diarrhea, abdominal bloating and Vomiting a greenish-yellow fluid. * Medical History: D egenerative disc disease 2005. * Social History: T obacco Use: T obacco Control (Standard) T obacco use: F ormer smoker D rugs/Alcohol: D o you drink alcohol?: No. Objective: * Vitals: H t: 62 in, Wt:229lbs, BMI:41.88Index. Patient Reported Normal Blood Pressure Patient Reported Normal Temperature. Assessment: * Assessment: AI TRIAGE SUGGESTED ASSESSME NTS:G43.909 - Migraine, unspecified, not intractable, without status jpdumrxmysnL02.40 - Drug-induced headache, not elsewhere classified, not rvvxdcqmkoyI91.905? - Adverse effect of unspecified drugs, medicaments and biological substances, episode of care pjvwucnplcqK19.009 - Cluster headache syndrome, unspecified, not smlimnvjkwoJ92.9 - Unspecified qjenzkhuA22.90 - Acute pancreatitis without necrosis or infection, muvreliyinxJ52.9 - Nontraumatic intracranial hemorrhage, ojzbdjzqzsnV02.6 - Other giant cell arteritis- -----AI TRIAGE CLINICAL REASONING:Based on the patient's history and symptoms, the differential diagnosis includes:1. Migraine: Consistent with the patient's history and presentation of severe headache, worsened by movement and stress.2. Acute Pancreatitis: Abdominal pain radiating to the back, worsened by movement, and associated with nausea and vomiting.3. Acute Angle-Closure Glaucoma: Impaired vision and severe headache.4. Cluster Headache: Severe headache with associated symptoms like vomiting and impaired vision.Further evaluation and diagnostic tests are recommended to confirm the diagnosis and provide appropriate treatment. Plan: * Treatment: * Billing Information: * Visit Code: * Procedure Codes: Images * [id number] * Electronic signature of [facility] on 01/06/2025 at 04:21 AM EDT Sign off status: Pending * Provider: Shirley NARAYAN [facility] Date: 05/19/2024 Generated for Garret erwin/Marci/Sunni on: 0 01/06/2025 04:21 AM EDT History and Physical Notes * HPI (History of Present Illness) Category Sub-Category Detail Notes Category Not es Tele[employer] Complaint History 38 year-old female, not , presents with migraine for a duration of 3 days. Medical History: COPD, asthma and degeneration of intervertebral disc. Medications: Methadone HCl 145 mg liquid Once a day at 5 am. Risk Factors: No injury of head.
--- OUTSIDE RECORDS SUMMARY | 2024-05-23 09:00 | XMS_ITS ---
Author Organization [facility] Address [address] [place] [address] Care Team Providers Care Customer Strategy Manager Name Role Phone [facility] [phone] REASON FOR VISIT F/U Lab results Encounters Encounter Location Date Provider Diagnosis [facility] [address] [place] [address] 05/23/2024 [facility] Plan Of Treatment No Information Progress Notes * Julio MARTINEZ B:1985 (39 yo F)Acc No.[id number]:05/23/2024 Progress Notes Patient: Huang KAM Provider: Shirley IRIZARRY :1985 A ge:38 Y S ex:Female Date:05/23/2024 Phone: Address:[address], [id number] Subjective: * Chief Complaints: * 1 . F/U Lab results. * Medical History: Objective: * Vitals: Assessment: Plan: * Treatment: * Billing Information: * Visit Code: * Procedure Codes: * Electronic signature of [facility] on 01/06/2025 at 04:22 AM EDT Sign off status: Pending * Provider: Shirley IRIZARRY Date: 05/23/2024 Generated for Garret erwin/Marci/eTransmitting on: 0 01/06/2025 04:22 AM EDT
[2025-01-06 03:59] VITALS: BP 146/124; PULSE 78; RESP 16; TEMP 37.1; O2SAT 95; BMI 42.5
--- NOTE | 2025-01-06 03:59 | XR_ITS ---
PROCEDURE INFORMATION: Exam: XR Chest Exam date and time: 01/06/2025 4:10 AM Age: 39 years old Clinical indication: Pain; Smoker's cough; Right-sided; Additional info: Right sided chest pain, cough, smoker TECHNIQUE: Imaging protocol: Radiologic exam of the chest. Views: 2 views. COMPARISON: CT ANGIO CHEST PE PROTOCOL 09/21/2024 7:11 AM FINDINGS: Lungs: Medial right lung base airspace opacity with may represent infiltrate or atelectasis. This is new from prior CT. Pleural spaces: Unremarkable. No pleural effusion. No pneumothorax. Heart/Mediastinum: Unremarkable. No cardiomegaly. Bones/joints: Unremarkable. IMPRESSION: Medial right lung base airspace opacity with may represent infiltrate or atelectasis. This is new from prior CT.
--- NOTE | 2025-01-06 04:00 | ECG_ITS ---
APPROVED REPORT Exam: Resting ECG HR:78 bpm ECG Measurements Heart Rate 78 AXES NE 166 P 76 QRSd 96 QRS 47 QT 296 T 15 QTc 329 Conclusion SINUS RHYTHM NONSPECIFIC T-WAVE ABNORMALITY NO STEMI Electronically signed by : MARIUM HOLLIS, 01/06/2025 05:14:46
[2025-01-06 04:04] VITALS: PULSE 78
[2025-01-06 04:05] VITALS: BP 108/58; PULSE 87; RESP 15; O2SAT 96
[2025-01-06] MEDS: ASPIRIN 81MG CHEWABLE TABLET 324 MG PO (04:08)
[2025-01-06 04:09] LABS: Lactate Venous 1.2 mmol/L (0.4-2.0); VBG HCO3 26.4 mmol/L (23-30); VBG PCO2 46.9 mmol/L (35-51); VBG PH 7.37 mmol/L (7.31-7.41); VBG PO2 32.9 mmol/L (28-40)
--- NOTE | 2025-01-06 04:12 | [facility].EDCP ---
Discharge Plan Disposition Patient Disposition: Home, Self-Care Condition: Good Prescriptions Prescriptions: New albuterol sulfate 2.5 mg/0.5 mL solution for nebulization 2.5 mg inhalation Q6H PRN (Reason: bronchospasm) Qty: 30 0RF doxycycline hyclate 100 mg capsule 100 mg PO BID 7 Days Qty: 14 0RF prednisone 20 mg tablet 40 mg PO BID 4 Days Qty: 16 0RF guaifenesin 600 mg tablet extended release 12hr 600 mg PO BID PRN (Reason: cough) Qty: 10 0RF No Action methadone 5 mg Tablet 145 mg PO DAILY prednisone 20 mg tablet 40 mg PO DAILY 5 Days Qty: 10 0RF doxycycline monohydrate 100 mg capsule 100 mg PO BID 5 Days Qty: 10 0RF albuterol-budesonide 90-80 mcg/actuation HFA aerosol inhaler 2 inh inhalation DAILY PRN (Reason: shortness of breath) Qty: 10.7 0RF clindamycin HCl [Cleocin HCl] 150 mg capsule 150 mg PO Q8H 10 Days Qty: 30 0RF ondansetron 4 mg tablet,disintegrating 4 mg PO TID PRN (Reason: nausea and vomiting) 5 Days Qty: 30 0RF Referrals Follow up/Referrals: Provider,Referral, MD [Primary Care Provider, Medical] - See instructions Activity Restrictions/Add. Instructions Additional Instructions/Restrictions: You were evaluated in the ER and are believed to be appropriate for discharge at this time. Take the prescribed doxycycline antibiotic as directed, do not skip doses, do not stop taking early. Drink a full glass of water after taking this antibiotic and stay sitting up for 30 minutes after taking it. Take the prescribed prednisone steroid as directed to help with lung inflammation. Start taking this medication on Tuesday01/07/25. I gave you a refill of albuterol nebulizer solution, use this as directed. Take the prescribed guaifenesin (Mucinex) if needed for cough. This will help you cough up more phlegm and move it out of your lungs. Make an appointment with your primary care doctor for reevaluation in 2 to 3 days. Return to the ER with any new, worsening, or otherwise concerning symptoms as discussed. Clinical Impressions Clinical Impression: Pneumonia Instructions Patient Instructions: DI for Chronic Obstructive Pulmonary Disease, DI for Pneumonia -- Adult, Doxycycline Print Language Print Language: Belgian Discharge ED Provider: Keisha Fernandez General Chief Complaint: Chest Pain Stated Complaint: SOB Time Seen by Provider: 01/06/25 03:59 Mode of Arrival: Ambulatory Source of Information: Patient Description of Symptoms (Recalled from ER Triage Doc. by RN): Patient has had right sided chest pain that radiates to her ribs since 2am; states it is 10/10 pain. Sharp. Has been sick, has a cough. History of Present Illness HPI narrative: 39-year-old female with history of COPD who is a daily smoker presents to the ER with right sided chest pain for the last 2 hours. Patient reports 10 out of 10 the pain. She states it is sharp. She states she has been sick for the last few days with a bad cough that is more productive than normal. She states she is not having any nausea or vomiting, she does have a history of previous cholecystectomy, she reports pain is worse with coughing and deep breathing. She has no history of blood clot, no redness, pain, or acute swelling in the feet or legs, no recent long distance travel. No abdominal complaints, no headaches or dizziness, no fevers or chills. No other complaints or concerns. Related Data Home Medications ?Medication ?Instructions ?Recorded ?Confirmed methadone 5 mg tablet 145 mg PO DAILY 07/27/24 07/27/24 Previous Rx's ?Medication ?Instructions ?Recorded albuterol 90 mcg-budesonide 80 2 inh inhalation DAILY PRN 07/27/24 mcg/actuation HFA aerosol inhaler shortness of breath #10.7 grams doxycycline monohydrate 100 mg 100 mg PO BID 5 days #10 caps 07/27/24 capsule prednisone 20 mg tablet 40 mg (2 x 20 mg) PO DAILY 5 days 07/27/24 #10 tabs clindamycin HCl 150 mg capsule 150 mg PO Q8H 10 days #30 caps 11/15/24 (Cleocin HCl) ondansetron 4 mg disintegrating 4 mg PO TID PRN nausea and 11/15/24 tablet vomiting 5 days #30 tabs albuterol sulfate 2.5 mg/0.5 mL 2.5 mg (0.5 mL) inhalation Q6H PRN 01/06/25 solution for nebulization bronchospasm #30 ea doxycycline hyclate 100 mg capsule 100 mg PO BID 7 days #14 caps 01/06/25 guaifenesin 600 mg tablet, 600 mg PO BID PRN cough #10 tabs 01/06/25 extended release 12 hr prednisone 20 mg tablet 40 mg (2 x 20 mg) PO BID 4 days 01/06/25 #16 tabs Allergies Allergy/AdvReac Type Severity Reaction Status Date / Time benzocaine (From Cetacaine) Allergy Severe Anaphylaxis Verified 07/27/24 08:20 butamben (From Cetacaine) Allergy Severe Anaphylaxis Verified 07/27/24 08:20 lidocaine Allergy Severe Anaphylaxis Verified 07/27/24 08:20 Penicillins Allergy Severe Anaphylaxis Verified 07/27/24 08:20 shellfish derived Allergy Severe Anaphylaxis Verified 07/27/24 08:20 tetracaine (From Cetacaine) Allergy Severe Anaphylaxis Verified 07/27/24 08:20 [facility] Disclaimer: The information contained in this section may have been updated after the patient was seen, as this information can be updated by other users. Medical History (Updated 01/06/25 @ 05:06 by Keisha Fernandez MD) Hx of drug abuse COPD (chronic obstructive pulmonary disease) Asthma Surgical History (Updated 07/27/24 @ 08:19 by Therese Whiting RN) Hx of cholecystectomy Hx of oral surgery Hx of dilation and curettage Hx of section Hx of tubal ligation Social History (Updated 11/19/22 @ 20:20 by Tolu Lopez MD) Smoking Status: Current every day smoker alcohol intake: former current occupational status: unemployed Travel in the last 8 weeks?: None ROS Obtained: Yes Systems reviewed as appropriate & no additional complaints except as documented Per HPI Physical Exam General General appearance: alert and in no apparent distress Head Head exam: atraumatic and normocephalic Eye Eye exam: Present PERRL and EOMI ENT ENT exam: Present mucous membranes moist Neck Neck exam: Present normal inspection and full ROM Chest Chest inspection: Present symmetric chest wall rise Respiratory Respiratory exam: Present wheezes (Mild); Absent normal lung sounds bilaterally (Mild rhonchi bilaterally), respiratory distress, stridor, accessory muscle use or prolonged expiratory phase Cardiovascular Cardiovascular exam: Present regular rate and normal rhythm Abdominal Exam Abdominal exam: Present soft; Absent distention, tenderness, guarding or rebound Extremities Exam Extremities exam: Present full ROM and edema (+1 bilateral lower extremity pitting edema); Absent joint swelling or calf tenderness Neurological Exam Neurological exam: Present alert and oriented X3; Absent motor sensory deficit Psychiatric Psychiatric exam: Present normal affect and normal mood Skin Skin exam: Present warm and dry HEART Score HEART Score HEART Score assessment performed?: Yes History (anamnesis): Slightly suspicious ECG: Non-specific disturbance Age: <45 years Risk factors: 1-2 risk factors Troponin: </= normal limit HEART Score: 2 Critical Care Critical Care Time Critical Care Time: No Medical Decision Making Medical Records Medical records reviewed: Yes I reviewed the patient's medical records. Akin Inquiry Pt receiving controlled substance: No Vital Signs Vital Signs: 01/06/25 03:59 01/06/25 04:04 01/06/25 04:05 Temperature 98.7 F Temperature Source Oral Pulse Rate 78 87 Pulse Rate [Right Radial] 78 Respiratory Rate 16 15 Blood Pressure 108/58 L Blood Pressure [Right Arm] 146/124 H Blood Pressure Mean [Right Arm] 131 Blood Pressure Source [Right Arm] Automatic Cuff Blood Pressure Position [Right Arm] Supine 02 Sat by Pulse Oximetry 95 96 Oxygen Delivery Method Room Air 01/06/25 04:30 01/06/25 04:43 Temperature Temperature Source Pulse Rate 78 Pulse Rate [Right Radial] Respiratory Rate 15 13 Blood Pressure 101/64 L 104/61 L Blood Pressure [Right Arm] Blood Pressure Mean [Right Arm] Blood Pressure Source [Right Arm] Blood Pressure Position [Right Arm] 02 Sat by Pulse Oximetry 93 L 95 Oxygen Delivery Method Lab Data Labs: Lab Results 01/06/25 04:00: WBC 9.2, RBC 4.72, Hgb 10.6 L, Hct 34.9 L, MCV 73.9 L, MCH 22.5 L, MCHC 30.4 L, RDW 17.8 H, Plt Count 249, MPV 10.2, Neut % (Auto) 73.9, Lymph % (Auto) 17.8, Childress % (Auto) 7.7, Eos % (Auto) 0.3, Baso % (Auto) 0.2, Neut # (Auto) 6.8, Lymph # (Auto) 1.6, Childress # (Auto) 0.7, Eos # (Auto) 0.0, Baso # (Auto) 0.0, PT 11.0, INR 0.99, D-Dimer 0.40, Sodium 138, Potassium 3.9, Chloride 105, Carbon Dioxide 26, Anion Gap 10.9, BUN 12, Creatinine 0.70, Estimated Creat Clear 88, Estimated GFR 93, Est GFR ( Amer) 112, Glucose 97, Calcium 8.9, Total Bilirubin 0.4, AST 18, ALT 20, Alkaline Phosphatase 73, Troponin I < 0.01, NT-Pro-B Natriuret Pep 49.5, Total Protein 7.7, Albumin 4.1, Globulin 3.6 H, Albumin/Globulin Ratio 1.1, Serum HCG, Qual Negative 01/06/25 04:03: VBG pH 7.37, VBG pCO2 46.9, VBG pO2 32.9, VBG HCO3 26.4, VBG Total CO2 27.9 H, VBG O2 Saturation 65.2, VBG Base Excess 1.1, VBG Lactic Acid 1.2 01/06/25 04:00 01/06/25 04:00 Response Orders (Tests/Meds): ED MEDICATIONS Generic Name Dose Route Start Last Admin Trade Name Freq PRN Reason Stop Dose Admin Nitroglycerin 0.4 mg 01/06/25 03:59 Nitroglycerin 0.4mg Sl Tablet SL 01/07/25 03:59 Q5MINP PRN Chest Pain Discontinued Medications Generic Name Dose Route Start Last Admin Trade Name Freq PRN Reason Stop Dose Admin Aspirin 324 mg 01/06/25 03:59 01/06/25 04:08 Aspirin 81mg Chewable Tablet PO 01/06/25 04:00 324 mg ONCE ONE Administration Doxycycline Hyclate 100 mg 01/06/25 09:00 Doxycycline Hycl 100 Mg Tablet PO 01/16/25 08:59 BID STEPHEN Doxycycline Hyclate 100 mg 01/06/25 04:55 01/06/25 04:56 Doxycycline Hycl 100 Mg Tablet PO 01/06/25 04:56 100 mg ONCE ONE Administration Morphine Sulfate 4 mg 01/06/25 04:11 01/06/25 04:19 Morphine 4mg/Ml Syringe IV 01/06/25 04:12 4 mg ONCE ONE Administration Ondansetron HCl 4 mg 01/06/25 04:11 01/06/25 04:20 Ondansetron 4mg/2ml Vial IV 01/06/25 04:12 4 mg ONCE ONE Administration Prednisone 40 mg 01/06/25 04:50 01/06/25 04:54 Prednisone 20mg Tab PO 01/06/25 04:51 40 mg ONCE ONE Administration ORDERS Category Date Time Status XR chest 2V Stat Exams 01/06/25 03:59 Completed Complete Blood Count Auto Diff Stat Lab 01/06/25 04:00 Completed Comprehensive Metabolic Panel Stat Lab 01/06/25 04:00 Completed D-Dimer Stat Lab 01/06/25 04:00 Completed HCG Qualitative, Serum Stat Lab 01/06/25 04:00 Completed NT Pro Brain Natriuretic Pep. Stat Lab 01/06/25 04:00 Completed Prothrombin Time INR Stat Lab 01/06/25 04:00 Completed Troponin I Q3H Lab 01/06/25 07:00 Ordered Troponin I Q3H Lab 01/06/25 10:00 Ordered Troponin I Stat Lab 01/06/25 04:00 Completed Venous Blood Gas Stat RT 01/06/25 04:03 Completed MDM Narrative Medical Decision Narrative: In summary, this 39-year-old female with comorbidities described in HPI presents to the emergency department today with right sided chest pain, productive cough. On initial evaluation patient is hemodynamically stable, afebrile, exam is notable for no chest wall tenderness, no abdominal tenderness, mild rhonchi in the lungs worse on the right than the left, mild end expiratory wheezes but no respiratory distress, saturating well on room air, peripheral edema in the legs which patient states is at baseline. Differential diagnosis includes but is not limited to ACS, I considered PE, also considered COPD exacerbation, pneumonia, pneumothorax, viral syndrome, among others. Based on these concerns, I ordered hematologic and serum labs, chest x-ray, cardiac workup. ECG personally interpreted demonstrates sinus rhythm, rate 78, normal axis, normal TX and QTc, no STEMI. Patient received aspirin, morphine, Zofran for treatment. Labs personally reviewed demonstrate no leukocytosis, anemia stable from prior, platelets normal, PT/INR normal, VBG with normal pH, no hypercarbia, no evidence of COPD exacerbation, CMP nonactionable, initial troponin undetectably low less than 0.01, hCG negative. XR personally interpreted demonstrates haziness that I believe represents early right lower lobe infiltrate in the current clinical setting, see radiology read for final interpretation. D-dimer 0.4, PE excluded. With nonischemic ECG, undetectable troponin, low heart score, and obvious other etiology for patient's right sided chest pain more consistent with her clinical findings, I do not believe she needs to stay for serial troponins. Patient received a dose of doxycycline and prednisone in the ER for treatment of pneumonia and symptomatic management. She is not hypercarbic and only has trace wheezing so I do not believe aggressive bronchodilators are indicated at this time. She has no respiratory distress and is saturating in the mid 90s on room air. Patient is appropriate for outpatient management at this time. She has a nebulizer at home and asked for refills of medications so I gave her albuterol nebulizer solution as a prescription as well as prescription for doxycycline, prednisone, and guaifenesin. Patient was given instructions on symptomatic monitoring and management, medication use, follow up instructions, and strict return precautions for the emergency department. I also spent approximately 15 minutes counseling the patient on tobacco cessation, she is aware she should quit but is not yet ready to take additional steps but notes that smoking and vaping, both of which she does, are detrimental to her health. Patient indicated understanding and was discharged in stable condition.
[2025-01-06 04:19] LABS: Hematocrit 34.9 % (37.0-47.0); Hemoglobin 10.6 g/dL (12.2-16.2); Immature Granulocytes % 0.1 %; Mean Corpuscular HGB Conc 30.4 g/dL (31.8-35.4); Mean Corpuscular Hemoglobin 22.5 pg (27.0-31.2); Mean Corpuscular Volume 73.9 fl (81-99); Nucleated Red Blood Cells % 0 %; Platelet Count 249 K/mm3 (142-424); Red Blood Count 4.72 M/mm3 (4.20-5.40); Red Cell Distribution Width-SD 47.2 fL; White Blood Count 9.2 K/mm3 (4.8-10.8)
[2025-01-06] MEDS: MORPHINE 4MG/ML SYRINGE 4 MG IV (04:19)
[2025-01-06] MEDS: ONDANSETRON 4MG/2ML VIAL 4 MG IV (04:20)
--- OUTSIDE RECORDS SUMMARY | 2025-01-06 04:22 | XMS_ITS | Patient Health Record ---
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 Phone [facility] Unavailable [phone] MORGAN MAJANO Unavailable [phone] Allergies Allergen (clinical drug ingredient) Drug/Non Drug Allergy documented on EMR Reaction Allergy Type Onset Date Status lidocaine Lidocaine Unknown Drug Allergy Active Penicillin anaphylaxis Drug Allergy Acti ve Shellfish (FN) Shellfish-derived Products shortness of breath Drug Allergy Active Reason For Referral No Information Medications Medication SIG (Take, Route, Frequency, Duration) Notes Start Date End Date Status Ondansetron 4 MG Oral; Duration: 2 Days Not-Taking Clindamycin HCl 150 MG Oral; Duration: 10 Days Not-Taking Ibuprofen 800 MG Oral; Duration: 7 Days Not-Taking Ketorolac Tromethamine 10 MG 1 tablet with food or milk as needed Orally every 6 hrs; Duration: 5 days As needed for pain 05/19/2024 Active Acetaminophen-Codeine 300-30 MG Oral; Duration: 4 Days Not-T aking Lurasidone HCl 20 MG TAKE 1 TABLET BY [facility] ONCE DAILY WITH AT LEAST 350 CALORIES Oral; Duration: 30 Days Not-Taki ng Mirtazapine 7.5 MG Oral; Duration: 30 Days Not-Taking Social History Tobacco Use: [...] Problem Status W/U Status Risk Notes Problem Refractory migraine ([id number]) Intractable migraine with status migrainosus, unspecified migraine type (G43.911) Active confirmed Vital Signs Height 62 in 05/19/2024 Temperature: Normal Blood pressure: High Weight 229 lbs 05/19/2024 Temperature: Normal Blood pressure: High BMI 41.88 kg/m2 05/19/2024 Temperature: Normal Blood pressure: High Encounters Encounter Location Date Provider Diagnosis [facility] [address] [place] [address] 05/19/2024 MORGAN MAJANO Intractable migraine with status [...] your doctor if you can take an [id number] medicine. Do not ignore new symptoms that [...] Test Name Order Date COMPREHENSIVE METABOLIC PANEL (63679) CBC (INCLUDES DIFF/PLT) (6399) 5 SED RATE BY MODIFIED WESTERGREN ([id number]) Insurance Providers Payer Name Payer Address Payer Phone Subscriber Number Group Number Insured Name Patient Relationship to Insured Coverage Start Date Coverage End Date [employer] [address] [place] [address] [id number] Huang Calloway Self - patient is the insured Medical (General) History Medical History History ICD Code Degenerative disc disease 2005
[2025-01-06 04:24] LABS: Albumin Level 4.1 g/dl (3.5-5.0); Chloride 105 mmol/L (98-107); Potassium 3.9 mmoL/L (3.5-5.1); Sodium 138 mmol/L (136-145)
[2025-01-06 04:27] LABS: Alanine Aminotransferase 20 U/L (12-78); Albumin/Globulin Ratio 1.1 (1.1-1.8); Alkaline Phosphatase 73 U/L (38-126); Anion Gap 10.9 mEq/L (5-15); Aspartate Amino Transferase 18 U/L (14-36); Bilirubin,Total 0.4 mg/dl (0.2-1.3); Blood Urea Nitrogen 12 mg/dl (7-17); Carbon Dioxide 26 mmol/L (22.0-30.0); Creatinine Clearance Estimated 88 mL/min (50-200); Creatinine,Serum 0.70 mg/dl (0.52-1.04); Estimated Glomerular Filt Rate 93 ml/min (>60); GFR (African American) 112 ML/MIN (>60); Globulin 3.6 g/dL (1.3-3.2); Total Protein,Serum 7.7 g/dl (6.3-8.2)
[2025-01-06 04:28] LABS: Calcium 8.9 mg/dl (8.4-10.2); Glucose 97 mg/dl (74-100)
[2025-01-06 04:29] LABS: INR 0.99 (0.9-1.1); Prothrombin Time 11.0 seconds (10.1-12.5)
[2025-01-06 04:30] VITALS: BP 101/64; PULSE 78; RESP 15; O2SAT 93
[2025-01-06 04:37] LABS: NT Pro Brain Natriuretic Pep. 49.5 pg/mL (0-125)
[2025-01-06 04:43] VITALS: BP 104/61; RESP 13; O2SAT 95
[2025-01-06 04:53] LABS: D-Dimer 0.40 ug/mL (0.0-0.5); HCG Qualitative, Serum Negative (Negative); Troponin I < 0.01 ng/ml (0.00-0.034)
[2025-01-06] MEDS: DOXYCYCLINE HYCL 100 MG TABLET PO (04:56)
[2025-01-06 05:06] VITALS: BP 114/72; PULSE 80; RESP 16; TEMP 37.2; O2SAT 96
== END 2025-01-06 05:12 | disposition home or self-care (01) ==
PROVIDERS: Emergency Provider Emergency Medicine
DX: R07.89 Other chest pain (principal); J18.9 Pneumonia, unspecified organism; F17.200 Nicotine dependence, unspecified, uncomplicated
CPT/HCPCS: 71046; 80053; 82803; 83880; 84484; 84703; 85025; 85378; 85610; 93005; 96374; 96375; 99285; J2270; J2405